=== PATIENT | female | born 1950 | race Caucasian/White ===

== ENCOUNTER 2017-08-23 12:32 | Outpatient (RCR) | payer MEDICARE, SELFPAY ==
[2017-07-26 11:05] LABS: Prothrombin Time Fingerstick 25.3 SEC (11.9-14.4)
[2017-08-23 12:51] LABS: Prothrombin Time Fingerstick 21.8 SEC (11.9-14.4)
== END 2017-08-23 12:45 | disposition home or self-care (01) ==
LOC: LAB 12:32
PROVIDERS: Family Provider Family Medicine; PCP Family Medicine; Visit Provider Internal Medicine Cardiovascular Disease
DX: I48.91 Unspecified atrial fibrillation (principal)
CPT/HCPCS: 36416; 85610

== ENCOUNTER → 2017-09-12 10:23 | Outpatient (CLI) | payer MEDICARE, SELFPAY ==
--- NOTE | 2017-09-12 10:42 | CR.HP_ITS ---
CR - History & Physical - General Arrival date:: 09/12/17 Arrival time:: 10:33 Date of Admission: 09/12/17 Referring Physician: Dr. Omar Sanchez Primary Diagnosis: CABG w/ mitral valve repair 04/2017 - History of Present Cardiac Event Onset Date: Enter Onset Date of cardiac illnesses in Comment field below CABG:: Yes - single vessel bypass 05/22/2017 Valve Replacement/Repair:: Yes - Mitral valve repaired 05/22/2017 Type of Symptoms:: Severe mitral valve regurgitation and heart failure Interventions with present event:: Single vessel bypass and mitral valve repair at [facility] Were there any complications?: Spontaneous atrial fibrillation and subsequent cardioversion - Medications Home Medications: Ambulatory Orders Medication Instructions Recorded Furosemide [Lasix] 40 mg PO DAILY 02/03/17 Multivitamin [Daily Multiple 1 ea PO DAILY 06/19/17 Vitamin] Aspirin E.C. [Ecotrin] 81 mg PO DAILY@0800 tab 06/22/17 Carvedilol [Coreg (Beta Delilah)] 3.125 mg PO BID #60 tab 06/22/17 Levothyroxine [Synthroid] 50 mcg PO DAILY@0600 tab 06/22/17 Nitroglycerin [Nitrostat] 0.4 mg SUBLINGUAL Q5M PRN #1 bottle 06/22/17 Potassium Chloride [K-Dur] 10 meq PO DAILYCM tab 06/22/17 warfarin 1 mg tablet 1 mg PO QDAY 07/14/17 warfarin 4 mg tablet 4 mg PO DAILY #180 tab 07/19/17 atorvastatin 40 mg tablet 40 mg PO QHS #90 tab 08/03/17 lisinopril 2.5 mg tablet 2.5 mg PO BID #180 tab 08/03/17 spironolactone 25 mg tablet 25 mg PO DAILY #90 tab 08/03/17 acetaminophen 325 mg tablet See Label Instructions PO Q6H PRN 08/11/17 tab amoxicillin 500 mg tablet 500 mg PO .COMPLEX tab 08/11/17 - Allergies Allergies/Adverse Reactions: Allergies No Known Allergies Allergy (Verified 08/23/17 10:17) - Sleep Disorder Evaluation Hx of Sleep Apnea: No Do you snore loudly (louder than talking or can be heard through closed doors)? : No Do you often feel tired/ fatigued/ sleepy during daytime?: No Has anyone observed you stop breathing during sleep?: No History of Hypertension (for STOP score): Yes STOP Results: Negative Advanced Directives - Advanced Directives Power of Dining Services Director: Yes Living Will: Yes Advance Directives Information Provided: No Advance Directives on File: No - on file with [facility] DNR Order?:: No Past Medical History - Problems and Co-Morbidities Problems & Co-Morbidities: - - bilateral pleural effusions, - Past Medical Illness Other Medical Illnesses:: edema (chronic),pericardial effusion, systolic dysfunction, acute on chronic systolic congestive heart failure. - Past Cardiac Illness Past Cardiac Illness: Valve Disorders - nonrheumatic mitral valve prolapse and regurgitation., Arrhythmias - atrial fibrillation, atrial flutter (resolved cardioversion 06/20/2017), CHF - Acute systolic heart failure (chronic), Ejection Fraction - 30-34%, Other - Chronic cardiomyopathy, - Other Other: Vision/Eye Problems - reading glasses. - Cardiology Procedures/Interventions Cardiology Procedures/Interventions: Heart Catheterization, Echocardiogram - Past Surgical History Surgical History: coronary bypass surgery, tonsillectomy, - - MV repair, tubal ligation, - Family History Summary Additional Family History: mother CVA, father heart disease bad valve. Review of Systems - Review of Systems Hints: Right click = Denies ([place]). Left click = Reports ([place]) Review of Present Symptoms: Reports: Heart Arrhythmia/Irregularities - atrial fibrillation and atrial flutter resolved with cardioversion operative procedure in May 2017., Appetite - Normal, Appetite - Special Diet - Low sodium diet. Less than 2000., Sleep - Normal. Denies: Shortness of Breath at Rest, Shortness of Breath with Exertion, Dizziness/Lightheadedness, Fatigue, Sexual Changes Risk Factor Assessment - Chief Complaint Chief Complaint: Very pleasant femlae age 66 presentst o cardiac rehab today under the care of Dr. Omar Sanchez following recent mitral valve repair and single vessel bypass in fall. - Pulse Pulse Rate: 64 - SpO2 95% Pulse Rhythm: Regular - Hypertension Blood Pressure Sitting - Left Arm: 124/72 - Diabetes Nutrition Referral for Diabetes: No - Obesity Height: 5 ft 6 in Weight:: 65.771 kg Weight in Pounds: 145.0 lbs Body Mass Index (BMI): 23.3 Nutritional Referral for Obesity: No - Physical Inactivity Physical Inactivity: Reg Exercise 30 min/day - 5, 000 or more steps per day. Active lifestyle - Risk Stratification Risk Guidelines: Lowest Risk: Risk Factor for Smoking, Risk Factor for Dyslipidemia, Risk Factor for Diabetes, Risk Factor for Obesity, Risk Factor for Hypertension, Risk Factor for Sedentary Lifestyle, Risk Factor for Depression - For Smoking Smoking Risk Guidelines: Smoking Low Risk: None or quit greater than 6 months ago. Smoking Moderate Risk: Smoker or quit 6 months or less ago. Smoking High Risk: Smoker - For Dyslipidemia Dyslipidemia Risk Guidelines: Low Risk: Moderate Risk: High Risk: 15-25% fat 25.1-29% fat >/= 30% fat. <7% sat fat 7-9% sat fat >9% sat fat. <150 mg chol 150-299 mg chol >/= 300 mg chol. LDL <100 LDL 100-129 LDL >/= 130. Chol/HDL ratio <5.0 Chol/HDL ratio 5.0-6.0 Chol/HDL ratio >6.0. Triglycerides <100 Triglycerides 100-149 Triglycerides >/= 150 - For Diabetes Mellitus Diabetes Risk Guidelines: Diabetes Low Risk: HgA1c <6.5% and/or FBG <120. Diabetes Moderate Risk: HgA1c 6.6-7.9% and/or FBG 120-180. Diabetes High Risk: HgA1c >/= 8% and/or FBG >180 - For Obesity/Overweight Obesity/Overweight Risk Guidelines: Obesity Low Risk: BMI <25.0. Obesity Moderate Risk: BMI 25-29.9. Obesity High Risk: BMI >/= 30.0 - For Hypertension Hypertension Risk Guidelines: Hypertension Low Risk: Systolic <120 and Diastolic <80. Hypertension Moderate Risk: Systolic 120-139 and Diastolic 80-89. Hypertension High Risk: Systolic >/= 140 and Diastolic >/= 90 - For Sedentary Lifestyle Sedentary Lifestyle Risk Guidelines: Sedentary Lifestyle Low Risk: >/= 1 ,500 kcal/week. Sedentary Lifestyle Moderate Risk: 700-1,499 kcal/week. Sedentary Lifestyle High Risk: < 700 kcal/week - For Depression Depression Risk Guidelines: Depression Low Risk: Not clinically depressed. Depression Moderate Risk: Mildly depressed. Depression High Risk: Clinically depressed - Family History Family History: Family History (Last Updated 08/23/17 @ 10:20 by Jerson Berger) Mother CVA (cerebral vascular accident) Father Heart disease Social History - Smoking History Smoking Status: Never smoker Hx Tobacco Use: No Hx Smoking Exposure: No - Alcohol Use Alcohol Usage: Yes - Wine; a couple of glasses per week. - Substance Abuse Hx Substance Use: No - Occupation Hours worked per day:: 6 Returned to work on:: 06/26/17 - Hobbies, Recreation, Social Activities Hobbies: Farm, Sewing, Reading, Walking, Exercise, Other - gardening, chicken raising, puzzles, reading, knitting, grandchildren. Recreational Activities: I am able to engage in all my recreational activities Marital Status - Status Marital Status: - Current Living Arrangements Living Environment:: Family - Children How many children do you have?: 3 - 3-daughters, 5 grandchildren Do any of your children live nearby?: Yes - Safety Do you feel safe in your surroundings?: Yes - Assistance Do you need any assistance at home?: none
--- NOTE | 2017-09-12 10:51 | CR.ITP_ITS ---
Exercise - Initial Assessment - Visit Date of Eval: 09/12/17 - initial evaluation pre- CR Session #:: 0 - - Stages of Change Stages of Change:: Action - Exercise Prescription Mode:: Treadmill, Rower, Airdyne, NuStep Angina with exercise?: No Target Heart Rate:: 115-123 - Hypertension Do any of the following apply?: No Resting Blood Pressure:: 120/72 - Intervention Home Exercise/Activity Goal:: Moderate Exercise 30 min/day x 5 days/wk - Education Goals:: Warm-up, RPE NEO Scale, S/S, Safe Exercise, Self-Monitoring - Exercise Program Goals Exercise Program Goals: Aerobic Activity >30 min Nutrition - Initial Assessment - Program Goals Nutrition Program Goals: LDL <70. Total Cholesterol <200. HDL >45. Triglycerides <150. HgbA1C <7%. BMI <25 - Visit Date of Assessment:: 09/12/17 - Initial evaluation-pre CR - Stages of Change Stages of Change:: Action - Diabetes Diabetes:: No Insulin: No Non-Insulin Dependent?: No Do you monitor your blood sugar at home?: No - Weight Management Height: 5 ft 6 in Weight:: 145 kg Body Fat %:: 24 - Intervention Referral to dietitian:: No Referral to Diabetic Clinic:: No Will attend diet classes:: No - Education Gave educational materials for:: Healthy eating Tobacco - Initial Assessment - Program Goals Tobacco Program Goals: Complete smoking cessation. Attend education classes. Improve Knowledge Test score - Stage of Change Stages of Change:: Action - Learning Barriers Learning Barriers: Vision - readers only., Ready to Learn - Family Support Do you have family support?: Yes - Tobacco Use Tobacco Use: Non-smoker Do you use smokeless tobacco?: No - Intervention Smoking Cessation Referral:: No Individual Education/Counseling:: No Education Schedule Given:: Yes - Education Gave educational material for:: Coronary artery disease, Risk factors, Sexuality , Medical compliance, Cardiac A&P, Angina signs & symptoms Psychosocial - Initial Assess - Target Goals Target Goals: Assess presence or absence of depression. Using a valid screening tool, maximizes coping skills. Positive support system - Stages of Change Stages of Change:: Action - Psychosocial Test Tool Used:: HANDS Depression Questionnaire Total Mood Screening Score:: 0 - Intervention PS - Interventions: Yes Attend Stress Management Classes, Yes Uses Stress Management Skills, No Referral to Mental Health, No Referral to [facility] Case Management, No Referral to Physician - Education Gave educational materials for:: Coping techniques, Signs & symptoms of depression, Stress management, Relaxation techniques - Patient/Program Goal Preventative Medication(s):: Aspirin, Clopidogrel, Statin/lipid - Assistive Devices Assistive Devices:: None Fall Risk Assessed:: Yes Patient Health Questionnaire Initial Assessment 1. Little interest or pleasure in doing things: Not at all 2. Feeling down, depressed, or hopeless: Not at all 3. Trouble falling or staying asleep, or sleeping too much: Not at all 4. Feeling tired or having little energy: Not at all 5. Poor appetite or overeating: Not at all 6. Feeling bad about yourself -- or that you are a failure or have let yourself or your family down: Not at all 7. Trouble concentrating on things, such as reading the newspaper or watching television: Not at all 8. Moving or speaking so slowly that other people could have noticed. Or the opposite - being so fidgety or restless that you have been moving around a lot more than usual: Not at all 9. Thoughts that you would be better off , or of hurting yourself in some way: Not at all Total Score: 0 Knowledge Test - Check your knowledge Initial The #1 cause of in the [place] each year is:: Heart disease Which of the following is a common treatment for heart disease?: All of the above The arteries that feed the heart are called:: Coronary arteries HDL cholesterol is known as the good cholesterol.: True What disease increases your risk for heart disease?: Diabetes What food product raises blood cholesterol level the most?: Saturated fat The bad cholesterol in the blood is called:: LDL Hypertension is another word for:: High blood pressure A blood pressure reading of 148/88 is considered normal.: False Exercise will only benefit your health when your heart rate reaches a target level.: True Total Score:: 9 Self-Efficacy Initial Assessment We would like to know how confident you are in doing certain activities. Please select your confidence level for:: Select your confidence level for the following using the scale 1-10 where 1 is not at all confident and 10 is totally confident. Your score is the average of all 6 responses. Fatigue: How confident are you that you can keep the fatigue caused by your disease from interfering with the things you want to do? Select Number: 8 Physical Discomfort or Pain: How confident are you that you can keep the physical discomfort or pain of your disease from interfering with the things you want to do? Select Number: 8 Emotional Distress: How confident are you that you can keep the emotional distress caused by your disease from interfering with the things you want to do? Select Number: 9 Other Symptoms or Health Problems: How confident are you that you can keep other symptoms or health problems from interfering with the things you want to do? Select Number: 8 Different Tasks and Activities: How confident are you that you can do the different tasks and activities needed to manage your health condition so as to reduce your need to see a doctor? Select Number: 8 Medication: How confident are you that you can do things other than just taking medication to reduce how much your illness affects your everyday life? Select Number: 6 Total Score:: 7 Nutrition Survey - Nutrition Survey Instructions Scoring Instructions: Scoring is as follows: Yes = 1 points. No = 0 point. Patient score that is >/=12 is considered to be at potential nutritional risk and could benefit from a referral to a registered dietitian. - Nutrition Survey Initial Have you lost >10 lbs over the past 2 months without trying?: No Are you following a special diet at home for diabetes, low fat, or low salt?: Yes Are you interested in meeting with a dietitian for help understanding your diet? : Yes Do you eat less than 3 meals a day?: No Do you eat fatty meats (tovar, sausage, ribs, etc), fried foods, desserts, large amounts of salad dressings, margarine, butter, or cheese most days?: No Do you have food allergies? [Enter types in comment field]: No Do you eat in restaurants more than 3 times a week?: No Do you season food with salt, seasoning salt, or garlic salt?: No Do you used canned, boxed, frozen meals, or soups, seasoning packets?: No Total Score:: 2 Cardiac Rehabilitation Goals - Cardiac Rehab Goals Cardiac Rehabilitation Goals: 1. Maintain the individual as the primary focus of care. 2. To improve the patient's quality of life. 3. Identification of cardiac risk factors and provide cardiac risk factor management. 4. Enhance the psychosocial status of the patient. 5. Reconditioning enough to allow the patient to resume customary activities. 6. Control symptoms of cardiac disease - Scale Scale for measuring improvement of personal goals: Enter appropriate number in Comments. 2 = Unchanged. 3 = Slightly Better. 4 = Moderate Improvement. 5 = Met my Goal Initial Assessment Personal Goals: 30-day Re-assessment: Improve management of stress and emotions , Improve energy level, Participate in home exercise program, Get back to work, or to resume activities faster, Improve knowledge of cardiac disease, Improve muscle strength and endurance, Improve diet and eating habits (eat healthier), Control risk factors (learn risk factor modification)
[2017-09-12 10:58] VITALS: BP 124/72; PULSE 64; BMI 23.3
[2017-09-12 11:37] VITALS: BP 120/72
== END ==
PROVIDERS: Family Provider Family Medicine; PCP Family Medicine; Visit Provider Internal Medicine Cardiovascular Disease
DX: Z95.1 Presence of aortocoronary bypass graft (principal)

== ENCOUNTER 2017-09-12 10:26 | Outpatient (RCR) | payer MEDICARE, SELFPAY ==
[2017-08-23 13:03] VITALS: BP 140/80; BMI 23.3
[2017-09-12 11:46] LABS: Prothrombin Time Fingerstick 21.2 SEC (11.9-14.4)
== END 2017-09-12 11:00 | disposition home or self-care (01) ==
LOC: LAB 10:26
PROVIDERS: Family Provider Family Medicine; PCP Family Medicine; Visit Provider Internal Medicine Cardiovascular Disease
DX: I48.91 Unspecified atrial fibrillation (principal)
CPT/HCPCS: 36416; 85610

== ENCOUNTER 2017-09-20 15:15 | Outpatient (RCR) | payer MEDICARE, SELFPAY ==
[2017-09-20 13:42] VITALS: BP 128/80; BP 144/82
--- NOTE | 2017-09-20 13:42 | CR.ITP_ITS ---
Exercise - 30-day Assessment - Visit Date of Eval: 09/20/17 Session #:: 3 - Stages of Change Stages of Change:: Action - Exercise Prescription Mode:: Treadmill, Rower, Airdyne, NuStep Frequency (x/week): 3 Duration:: 30 METs - Progression: 0.5-1 MET as tolerated: 2.5 Target Heart Rate:: 115-123 max HR 106 - Hypertension Resting Blood Pressure:: 128/80 Peak Exercise Blood Pressure:: 144/82 Medication Changes:: No - Intervention Home Exercise/Activity Goal:: Moderate Exercise 30 min/day x 5 days/wk - Education Goals:: Warm-up, RPE NEO Scale, S/S, Safe Exercise, Self-Monitoring - Exercise Program Goals Exercise Program Goals: Aerobic Activity >30 min Nutrition - 30-Day Assessment - Program Goals Nutrition Program Goals: LDL <70. Total Cholesterol <200. HDL >45. Triglycerides <150. HgbA1C <7%. BMI <25 - Visit Date of Eval: 09/20/17 - Stages of Change Stages of Change:: Action - Lipids Has the patient seen the dietitian?: No - Diabetes Diabetes:: No Insulin: No Non-Insulin Dependent?: No - Intervention Referral to dietitian:: No Referral to Diabetic Clinic:: No Will attend diet classes:: Yes - Education Attended class for:: Healthy eating Tobacco - 30-Day Assessment - Program Goals Tobacco Program Goals: Complete smoking cessation. Attend education classes. Improve Knowledge Test score - Stage of Change Stages of Change:: Action - Learning Barriers Learning Barriers: Participates in education - Family Support Do you have family support?: Yes - Tobacco Use Tobacco Use: Non-smoker Do you use smokeless tobacco?: No - Intervention Smoking Cessation Referral:: No Individual Education/Counseling:: No Education Schedule Given:: Yes - Education Attended class for:: Coronary artery disease, Risk factors, Sexuality, Medical compliance, Cardiac A&P, Angina signs & symptoms Psychosocial - 30-Day Assess - Target Goals Target Goals: Assess presence or absence of depression. Using a valid screening tool, maximizes coping skills. Positive support system - Stages of Change Stages of Change:: Action - Psychosocial Test Tool Used:: HANDS Depression Questionnaire - Intervention PS - Interventions: Yes Attend Stress Management Classes, Yes Uses Stress Management Skills, No Referral to Mental Health, No Referral to [facility] Case Management, No Referral to Physician - Education Attended classes for:: Coping techniques, Signs & symptoms of depression, Stress management, Relaxation techniques - Patient/Program Goal Preventative Medication(s):: Aspirin, Clopidogrel, Statin/lipid - Assistive Devices Assistive Devices:: None Fall Risk Assessed:: Yes Patient Health Questionnaire 30-Day Re-eval Assessment 1. Little interest or pleasure in doing things: Not at all 2. Feeling down, depressed, or hopeless: Not at all 3. Trouble falling or staying asleep, or sleeping too much: Not at all 4. Feeling tired or having little energy: Not at all 5. Poor appetite or overeating: Not at all 6. Feeling bad about yourself -- or that you are a failure or have let yourself or your family down: Not at all 7. Trouble concentrating on things, such as reading the newspaper or watching television: Not at all 8. Moving or speaking so slowly that other people could have noticed. Or the opposite - being so fidgety or restless that you have been moving around a lot more than usual: Not at all 9. Thoughts that you would be better off , or of hurting yourself in some way: Not at all Total Score: 0 Self-Efficacy 30-Day Re-eval Assessment We would like to know how confident you are in doing certain activities. Please select your confidence level for:: Select your confidence level for the following using the scale 1-10 where 1 is not at all confident and 10 is totally confident. Your score is the average of all 6 responses. Fatigue: How confident are you that you can keep the fatigue caused by your disease from interfering with the things you want to do? Select Number: 10 Physical Discomfort or Pain: How confident are you that you can keep the physical discomfort or pain of your disease from interfering with the things you want to do? Select Number: 10 Emotional Distress: How confident are you that you can keep the emotional distress caused by your disease from interfering with the things you want to do? Select Number: 10 Other Symptoms or Health Problems: How confident are you that you can keep other symptoms or health problems from interfering with the things you want to do? Select Number: 10 Different Tasks and Activities: How confident are you that you can do the different tasks and activities needed to manage your health condition so as to reduce your need to see a doctor? Select Number: 10 Medication: How confident are you that you can do things other than just taking medication to reduce how much your illness affects your everyday life? Select Number: 10 Total Score:: 10
== END 2017-09-20 23:59 ==
LOC: CR 15:15
PROVIDERS: Family Provider Family Medicine; PCP Family Medicine; Visit Provider Internal Medicine Cardiovascular Disease
DX: I25.10 Atherosclerotic heart disease of native coronary artery without angina pectoris (principal); Z95.1 Presence of aortocoronary bypass graft; Z95.2 Presence of prosthetic heart valve; Z98.890 Other specified postprocedural states
CPT/HCPCS: 93798

== ENCOUNTER 2017-09-22 15:39 | Emergency (ER) | payer MEDICARE, SELFPAY ==
[2017-09-22 15:40] VITALS: BP 160/100; PULSE 89; RESP 26; TEMP 37.2; O2SAT 99; BMI 23.2
--- NOTE | 2017-09-22 15:49 | EKG12_ITS ---
Test Reason : CP Blood Pressure : / mmHG Vent. Rate : 089 BPM Atrial Rate : 089 BPM P-R Int : 172 ms QRS Dur : 098 ms QT Int : 376 ms P-R-T Axes : 084 057 105 degrees QTc Int : 457 ms Normal sinus rhythm Septal infarct , age undetermined Abnormal ECG Confirmed by TRACI FRANKEL, ARTIE ([id number]), editor newspaper TRUPTI TOMAS ([id number]) on 09/26/2017 4:19:34 PM Referred By: REGINE Confirmed By:ARTIE AVILES MD
--- NOTE | 2017-09-22 15:50 | RAD_ITS ---
STUDY: X-RAY CHEST REASON FOR EXAM: Female, 66 years old. Abnormal EKG TECHNIQUE: AP portable COMPARISON: June 19, 2017 FINDINGS: Lungs are hyperinflated but clear. There is no demonstrated pleural abnormality. Postop changes status post median sternotomy and CABG as well as aortic valve prosthesis placement Heart is enlarged. Normal mediastinum and ruby. Normal visualized pulmonary arteries. Normal visualized aortic arch and descending thoracic aorta. Dorsal spine demonstrates mild scoliosis and degenerative changes. Normal visualized ribs, clavicles, and shoulders. There is no demonstrated abnormality of the visualized soft tissue structures of the upper abdomen. RAD/Chest 1 View (Portable) IMPRESSION: COPD and superimposed ASHD. No acute disease. Electronically Signed: Franco Krishnamurthy MD at 17:05 EST , Service support ,
--- NOTE | 2017-09-22 15:54 | ED.VISSUMM ---
- ER Visit Summary Date of Service: 09/22/17 Chief Complaint: Change in heart rhythm History of Present Illness: The patient is a 66 F with medical history significant for recent coronary artery bypass with mitral valve repair done at [facility] in May presents to the emergency department from cardiac rehab. Patient was at cardiac rehab. She had not even started her exercises. She was found to be having significant sinus pauses with heart rates down into the 30s and 40s. She was totally asymptomatic. The patient was admitted about 2 months ago when she was found to be in atrial flutter with rapid ventricular response. She was also having bradycardic events. He was thought she may have had sick sinus syndrome, but as she was so close to her surgery, it was thought that she did not need electrophysiology workup at that time. The patient has been doing well with her rehab. She denies any chest pain, dyspnea, or other systemic symptoms. She states that today, she cannot even tell that her heart rate was low. Physical Examination: Vital signs reviewed General: Well-nourished, well-developed Head: Normocephalic, atraumatic Eyes: Pupils equal and reactive, extraocular muscles intact Neck, supple, no lymphadenopathy Heart: Regular rate and rhythm Respiratory: No distress, clear bilaterally Abdomen: Soft, nontender, nondistended, no peritoneal signs Back: Nontender Extremities: Nontender, no edema, no cords Skin: Normal color no rash Neuro: Alert and oriented, no focal or lateralizing deficits Test Results: EKG demonstrates sinus rhythm with no acute ischemia. Screening labs relatively unremarkable. Troponin was indeterminate at 0.24. Emergency Department Course and Treatment: The patient presents with asymptomatic bradycardia. I did review her monitor strip. It does not appear as if she may have underlying sick sinus syndrome as there was no heart block or transmitted P waves. She does have retrograde P waves when she has a narrow complex rhythm when her heart rate is in the 30s and 40s. Her labs are unremarkable. Again, this patient was entirely asymptomatic, but given her history and suspicion for prior sick sinus syndrome, this was concerning. I did discuss the patient with Dr. Mariee. At this time, he is recommending admission as the patient is likely going to need pacemaker placement. Patient was discussed with the hospitalist and will be admitted. Abdomen: The patient was to be admitted, but she had discussed with the hospitalist this is been going on for months. She did not want to stay. The hospitalist had discussed patient's care with Dr. Woo, registration specialist provider relations manager. He was agreeable with placement of a 48 hour Holter monitor and follow up in the office. At the discretion of cardiology and the hospitalist, the patient will be discharged. Treatment Plan: [] Disposition: Admission Impression: 1. Sick sinus syndrome This note was generated with [employer] dictation software. It may contain incorrect words, spelling, and punctuation that were not noted in review of the chart prior to signing ED Disposition - Plan for ED Patient: Chief Complaint: Palpitations Instructions: ED Palpitations Referrals: Feliciano Carter MD [STAFF PHYSICIAN] - (Call Monday)
[2017-09-22 16:14] LABS: Absolute Lymphocyte Count 2.84 X10^3/ul (0.83-4.51); Absolute Neutrophil Count 6.1 X10^3/uL (2.0-7.7); Basophil# 0.03 X10^3/uL; Basophil% 0.3 % (0-1); Eosinophil# 0.19 X10^3/uL; Eosinophils% 1.9 % (0-5); Hematocrit 42.9 % (37-47); Hemoglobin 14.6 g/dl (12.0-15.0); Lymphocyte # 2.84 X10^3/ul (4.0); Lymphocyte % 28.9 % (19-41); Mean Corpuscular Hgb 31.3 pg (27.0-32.0); Mean Corpuscular Volume 91.9 fL (81-99); Mean Platelet Vol. 9.5 fl (6.2-12.0); Monocyte# 0.63 X10^3/uL; Monocyte% 6.4 % (0-10); Neutrophil # 6.11 X10^3/uL (2.7-7.7); Neutrophil % 62.3 % (47-70); Platelet Count 252 K/mm3 (150-450); RBC Distribution Width CV 12.3 % (11.6-14.6); RBC Distribution Width SD 40.9 fl (35.1-43.9); Red Blood Count 4.67 M/mm3 (4.2-5.4); White Blood Count 9.8 K/mm3 (4.4-11.0)
[2017-09-22] MEDS: 0.9% Normal Saline 1,000 ML 150 ML IV (16:14)
[2017-09-22 16:21] LABS: International Normalized Ratio 1.9; Prothrombin Time (Protime)PT. 21.9 SECONDS (11.7-14.9)
[2017-09-22 16:24] LABS: POSITIVE COUNT NO; POSITIVE DIFFERENTIAL NO; POSITIVE MORPHOLOGY NO
[2017-09-22 16:26] LABS: ALB/GLOB Ratio 1.2 RATIO (0.9-2.4); AST(SGOT) 31 U/L (15-37); Alanine Aminotransfer ALT/SGPT 42 U/L (13-56); Albumin, Serum 4.3 g/dL (3.2-5.0); Alkaline Phosphatase 94 U/L (45-117); Anion Gap 7 (5-15); BUN 33 mg/dL (7-18); BUN/Creat Ratio 31.7 RATIO (10-20); Calcium,Total 8.7 mg/dL (8.5-10.1); Chloride 99 mmol/L (98-107); Creatinine, Serum 1.04 mg/dL (0.55-1.02); EST Glomerular Filtration Rate 56 mL/min (>60); Est Glom Filt Rate - Afr Amer 68 mL/min (>60); Estimated Creatinine Clearance 49.81 ml/min; Globulin 3.7 g/dL (2.2-4.2); Glucose 81 mg/dL (74-106); Potassium 4.6 mmol/L (3.5-5.1); Sodium Level 136 mmol/L (136-145)
[2017-09-22 16:49] VITALS: BMI 23.3
[2017-09-22 16:53] VITALS: BP 152/100; PULSE 89; RESP 16; O2SAT 98
--- NOTE | 2017-09-22 16:55 | HP.PCM_ITS ---
<Amanda Perales - Last Filed: 09/22/17 17:30> Problem List (1) Acute on chronic systolic congestive heart failure Status: Chronic (2) Atrial fibrillation Status: Chronic (3) Atrial flutter Status: Resolved (4) CAD (coronary artery disease) Status: Chronic (5) Cardiomyopathy Status: Chronic (6) H/O coronary artery bypass surgery Status: Chronic Comment: CABG x1 Lt internal thoracic artery to the LAD at [facility] 04/2017 (7) HLD (hyperlipidemia) Status: Chronic (8) Long-term (current) use of anticoagulants, INR goal 2.0-3.0 Status: Chronic (9) Nonrheumatic mitral (valve) prolapse Status: Chronic (10) Nonrheumatic mitral valve regurgitation Status: Chronic (11) Pericardial effusion Status: Chronic (12) S/P CABG x 1 Status: Chronic Comment: KERN to the LAD (13) S/P MVR (mitral valve repair) Status: Chronic Comment: MV A3/P3 commissuroplasty with a #34 [facility] Saddle complete rigid annuloplasty ring History of Present Illness Date of Admission: 09/22/17 Chief Complaint: Dropped beats The patient is a 66 year old F who presents to the ER after noted dropped beats during Cardiac Rehab today. She states this is not a new finding but was concerning to staff who referred her to ER. Patient states she was asymptomatic at during episode. Patient states dropped beats have been noted during office visits with Dr. Sanchez were not noted to be concerning. Patient denies chest pain, shortness of breath, syncope. She states she has been doing well since her bypass surgery and mitral valve repair in April 2017. Has been at bedside during assessment. and patient states they would like to continue outpatient follow-up/treatment versus being admitted since this is not a new finding. Discussed with cardiology who recommended patient be discharged with 48 hour Holter monitor and referral for AICD. Past Medical History Past Medical History (Chronic Problems): Chronic Problems (Last Reviewed 08/23/17 @ 10:29 by Jerson Berger) Atrial fibrillation (Chronic) Cardiomyopathy (Chronic) Nonrheumatic mitral (valve) prolapse (Chronic) Nonrheumatic mitral valve regurgitation (Chronic) Pericardial effusion (Chronic) H/O coronary artery bypass surgery (Chronic) CABG x1 Lt internal thoracic artery to the LAD at [facility] 04/2017 Acute on chronic systolic congestive heart failure (Chronic) Long-term (current) use of anticoagulants, INR goal 2.0-3.0 (Chronic) CAD (coronary artery disease) (Chronic) S/P CABG x 1 (Chronic) KERN to the LAD S/P MVR (mitral valve repair) (Chronic) MV A3/P3 commissuroplasty with a #34 [facility] Saddle complete rigid annuloplasty ring HLD (hyperlipidemia) (Chronic) Allergies No Known Allergies Allergy (Verified 09/22/17 15:44) Home Medications: Ambulatory Orders Medication Instructions Recorded Furosemide [Lasix] 40 mg PO DAILY 02/03/17 Multivitamin [Daily Multiple 1 ea PO DAILY 06/19/17 Vitamin] Aspirin E.C. [Ecotrin] 81 mg PO DAILY@0800 tab 06/22/17 Carvedilol [Coreg (Beta Delilah)] 3.125 mg PO BID #60 tab 06/22/17 Levothyroxine [Synthroid] 50 mcg PO DAILY@0600 tab 06/22/17 Nitroglycerin [Nitrostat] 0.4 mg SUBLINGUAL Q5M PRN #1 bottle 06/22/17 Potassium Chloride [K-Dur] 10 meq PO DAILYCM tab 06/22/17 warfarin 1 mg tablet 2 mg PO ARRIAGA 07/14/17 atorvastatin 40 mg tablet 40 mg PO QHS #90 tab 08/03/17 lisinopril 2.5 mg tablet 2.5 mg PO BID #180 tab 08/03/17 spironolactone 25 mg tablet 25 mg PO DAILY #90 tab 08/03/17 amoxicillin 500 mg tablet 500 mg PO .COMPLEX tab 08/11/17 Warfarin [Coumadin] 4 mg PO MOTUWETHFRSA 09/22/17 Surgical History: coronary bypass surgery, tonsillectomy, - - Tubal ligation, plastic surgery ?3 to right hand. 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 Smoking Status: Never smoker Alcohol: Rare Drugs: None - *Family History Paternal History Items: Heart Disease Maternal History Items: Stroke Review of Systems Constitutional: Denies: Chills, Fever, Weight Change HEENT: Denies: Head Aches, Sinus Congestion, Sinus Drainage Cardiovascular: Denies: Chest Pain, Palpitations Respiratory: Denies: Cough, Shortness of breath at rest, Sputum production Gastrointestinal: Denies: Abdominal Pain, Nausea, Vomiting Genitourinary: Denies: Dysuria Musculoskeletal: Denies: Joint Pain, Joint Tenderness Skin: Denies: Rash, Wounds Neurological: Denies: Numbness, Tingling, Focal weakness Psychiatric: Denies: Anxiety, Depression, Homicidal Ideations, Suicidal Ideations Hematologic/ Lymphatic: Denies: Easy Bruising, Easy Bleeding VTE Information - Inpt Only VTE Present on Admission: No VTE Mechan Device Prophylaxis: None VTE Pharm Prophylaxis ordered?: Yes - Physical Exam General: Alert, Oriented x3, Cooperative, No apparent distress HEENT: Atraumatic, PERRLA, EOMI, Normocephalic Neck: Supple, No JVD, Negative Carotid Bruits Lungs: Clear to auscultation, Normal air movement Cardiovascular: Regular rate, Regular Rhythm, Normal S1, Normal S2, Murmur Abdomen: Bowel Sounds Present, Soft, Non Tender, Non-Distended Extremities: No clubbing, No cyanosis, No edema, Capillary Refill Less than 3 Seconds Skin: No rashes, No breakdown Musculoskeletal: No Tenderness to Palpation of Joints or Extremities Neurological: Cranial nerves II-XII grossly intact, Neuro grossly intact Psych/Mental Status: Normal Affect, Appropriate Vital Signs Temp Pulse Resp BP Pulse Ox 98.9 F 89 26 H 160/100 H 99 09/22/17 15:40 09/22/17 15:40 09/22/17 15:40 09/22/17 15:40 09/22/17 15:40 Weight: 65.317 kg Body Mass Index (BMI) 23.2 Laboratory Tests Past 24 Hrs 09/22/17 09/22/17 09/22/17 15:55 15:55 15:55 WBC 9.8 RBC 4.67 Hgb 14.6 Hct 42.9 MCV 91.9 MCH 31.3 MCHC 34.0 RDW 12.3 RDW Differential 40.9 Plt Count 252 MPV 9.5 Immature Gran % (Auto) 0.200 Neut % (Auto) 62.3 Lymph % (Auto) 28.9 [place] % (Auto) 6.4 Eos % (Auto) 1.9 Baso % (Auto) 0.3 Absolute Neuts (auto) 6.1 Absolute Lymphs (auto) 2.84 Total Counted Not Reportable PT 21.9 H INR 1.9 Sodium 136 Potassium 4.6 Chloride 99 Carbon Dioxide 30.0 Anion Gap 7 BUN 33 H Creatinine 1.04 H Estim Creat Clear Calc 49.81 Est GFR (MDRD) Af Amer 68 Est GFR (MDRD) Non-Af 56 L BUN/Creatinine Ratio 31.7 H Glucose 81 Calcium 8.7 Total Bilirubin 0.70 AST 31 ALT 42 Alkaline Phosphatase 94 Troponin I 0.24 H Total Protein 8.0 Albumin 4.3 Globulin 3.7 Albumin/Globulin Ratio 1.2 Assessment/Plan 1. Bradycardia/SSS-no noted block on EKG. Intermittent dropped beats. Patient asymptomatic. Patient will be discharged from ER with 48 hour Holter monitor and further follow-up as outpatient with cardiology with recommended referral for AICD. Patient follows with Dr. Sanchez. 2. CAD status post bypass with alignment to the LAD and mitral valve repair in April 2017. Continue aspirin, statin, BB, warfarin. 3. Chronic systolic CHF-echocardiogram June 2017 showed an EF of 25-30%, mild mitral valve regurgitation. Recommend repeat echo as outpatient. No signs of acute exacerbation. 4. Nonrheumatic mitral valve regurgitation-status post mitral valve repair. 5. Paroxysmal atrial fibrillation-diagnosed postoperatively after her surgery April 2017. Status post cardioversion May 2017. Has not had any known recurrence since that time. Remains on anticoagulation with Coumadin. 6. Hyperlipidemia- continue statin. DVT prophylaxis- Coumadin This patient was seen by TRACIE Argueta under the supervision of Dr. Naik. <Selena Naik - Last Filed: 09/22/17 17:55> History of Present Illness The patient is a 66 year old F [] Past Medical History Allergies No Known Allergies Allergy (Verified 09/22/17 15:44) - Physical Exam Vital Signs Temp Pulse Resp BP Pulse Ox 98.9 F 89 16 152/100 H 98 09/22/17 15:40 09/22/17 16:53 09/22/17 16:53 09/22/17 16:53 09/22/17 16:53 Weight: 65.317 kg Body Mass Index (BMI) 23.2 Laboratory Tests Past 24 Hrs 09/22/17 09/22/17 09/22/17 15:55 15:55 15:55 WBC 9.8 RBC 4.67 Hgb 14.6 Hct 42.9 MCV 91.9 MCH 31.3 MCHC 34.0 RDW 12.3 RDW Differential 40.9 Plt Count 252 MPV 9.5 Immature Gran % (Auto) 0.200 Neut % (Auto) 62.3 Lymph % (Auto) 28.9 [place] % (Auto) 6.4 Eos % (Auto) 1.9 Baso % (Auto) 0.3 Absolute Neuts (auto) 6.1 Absolute Lymphs (auto) 2.84 Total Counted Not Reportable PT 21.9 H INR 1.9 Sodium 136 Potassium 4.6 Chloride 99 Carbon Dioxide 30.0 Anion Gap 7 BUN 33 H Creatinine 1.04 H Estim Creat Clear Calc 49.81 Est GFR (MDRD) Af Amer 68 Est GFR (MDRD) Non-Af 56 L BUN/Creatinine Ratio 31.7 H Glucose 81 Calcium 8.7 Total Bilirubin 0.70 AST 31 ALT 42 Alkaline Phosphatase 94 Troponin I 0.24 H Total Protein 8.0 Albumin 4.3 Globulin 3.7 Albumin/Globulin Ratio 1.2 Assessment/Plan Patient was seen and examined with Amanda Perales, nurse practitioner. Agree with her history, physical exam, assessment and plan. In summary: Patient had a mitral valve with pain with CABG done in May 2017, has been following up with Dr. Sanchez in the outpatient, noted some pauses since June 2017. She has been seen at Dr. Sanchez's office 3 times, started Rehab 2 weeks ago, pauses were noted. This morning before she restarted her exercises, sinus pauses were noted, patient has remained asymptomatic throughout all these events. She denied any chest pain or dizziness or shortness of breath or leg swelling or any weight gain. Vitals in the ED as stable with heart rate of 89, blood pressure slightly elevated at 152/99. EKG showed normal sinus rhythm, heart rate of 61, with significant pulses that occur infrequently. Physical exam: GEN: Afebrile, alert and oriented ?3, not pale, not jaundiced, well hydrated CVS: HS I +II, present, regular, no murmurs were heard, sternal scar that is healing very well RESP: Clinically Clear to auscultation EXT: No edema ABD: BS +, Soft, non-tender, no palpable organs Assessment: 1. Sinus pauses, unclear etiology 2. Chronic systolic CHF with EF of 25%, patient needs AICD 3. CAD status post CABG 4. Status post mitral valve repair 5. Paroxysmal atrial fibrillation, in normal sinus rhythm 9, status post cardioversion May 2017, on Coumadin Plan: Discussed in depth with Dr. Woo was covering the [facility], comments transfer for AICD placement, does not recommend admission, ER to put patient on a Holter monitor. This is communicated back to the ED physician, patient will be discharged from the ED Code Visit Office Visits / Consults: [id number] IP Consult L5
[2017-09-22 17:48] VITALS: BP 158/98; BP 159/98; PULSE 89; RESP 18; O2SAT 100
== END 2017-09-22 17:49 | disposition home or self-care (01) ==
PROVIDERS: Emergency Provider Emergency Medicine; Family Provider Family Medicine; PCP Family Medicine
DX: I49.5 Sick sinus syndrome (principal); R00.1 Bradycardia, unspecified; I25.10 Atherosclerotic heart disease of native coronary artery without angina pectoris; I25.2 Old myocardial infarction; I10 Essential (primary) hypertension; E78.00 Pure hypercholesterolemia, unspecified; Z95.1 Presence of aortocoronary bypass graft; Z79.01 Long term (current) use of anticoagulants; Z79.82 Long term (current) use of aspirin; Z79.899 Other long term (current) drug therapy
CPT/HCPCS: 71045; 80053; 84484; 85025; 85610; 93005; 96360; 96361; 99285; J7030; A4216

== ENCOUNTER → 2017-09-22 17:38 | Outpatient (CLI) | payer MEDICARE, SELFPAY | PROVIDERS: Family Provider Family Medicine; PCP Family Medicine; Visit Provider Emergency Medicine | DX: R00.1 Bradycardia, unspecified (principal); I49.5 Sick sinus syndrome; I25.10 Atherosclerotic heart disease of native coronary artery without angina pectoris; I25.2 Old myocardial infarction; I10 Essential (primary) hypertension; E78.00 Pure hypercholesterolemia, unspecified; Z95.1 Presence of aortocoronary bypass graft; Z79.1 Long term (current) use of non-steroidal anti-inflammatories (NSAID); Z79.82 Long term (current) use of aspirin; Z79.899 Other long term (current) drug therapy; Z98.890 Other specified postprocedural states | CPT/HCPCS: 71045; 80053; 84484; 85025; 85610; 93005; 93225; 93226; 96360; 96361; 99285; J7030; A4216 ==

== ENCOUNTER → 2017-10-03 09:58 | Outpatient (CLI) | payer MEDICARE, SELFPAY ==
--- NOTE | 2017-10-03 10:00 | ECHOD_ITS ---
Reason For Study: CHF Procedure This was a 2D Doppler, Color Flow transthoracic echocardiogram. The study was technically difficult. Due to diminished accoustic windows. Exam performed in department. Left Ventricle Normal LV size. Moderate global left ventricular systolic dysfunction. The estimated ejection fraction is 35 %. No regional wall motion abnormalities noted. Right Ventricle Normal RV size. Mild global right ventricular systolic dysfunction. Atria The left atrium is mildly enlarged. Normal right atrium. Mitral Valve Bileaflet diffuse mitral valve thickening. Mild-Moderate (1-2+) eccentric mitral valve insufficiency. An annuloplasty ring is noted in the mitral position. Tricuspid Valve Normal tricuspid valve. Mild (1+) tricuspid valve insufficiency. Pulmonary artery systolic pressure is 40 mmHg. Aortic Valve Trisinus/trileaflet aortic valve. Mild focal aortic valve calcification. Pulmonic Valve Normal pulmonic valve. Great Vessels Normal aortic root. The pulmonary artery is normal size. Normal inferior vena cava. Pericardium/Pleural No pericardial effusion. MMode/2D Measurements & Calculations LVIDd: 5.1 cm IVSd: 1.1 cm Ao root diam: 3.0 cm LVIDs: 3.8 cm LVPWd: 1.00 cm LA dimension: 4.3 cm RVDd: 3.0 cm FS: 25.2 % LAV(MOD-bp): 61.0 ml LA A4 area: 21.1 cm2 LAV(MOD-bp) Indexed: 34.7 ml/m2 LAV(MOD-sp2): 52.9 ml LAV(MOD-sp4): 68.6 ml Time Measurements MV dec time: 0.18 sec Doppler Measurements & Calculations MV E max armen: 100.3 cm/sec Lat Peak E' Armen: 3.7 cm/sec Med Peak E' Armen: 3.5 cm/sec MV A max armen: 118.9 cm/sec E/E' lat: 26.8 E/E' med: 28.3 MV E/A: 0.84 Ao V2 max: 102.3 cm/sec LV V1 max: 77.6 cm/sec PA V2 max: 98.9 cm/sec Ao max P.2 mmHg LV V1 max P.4 mmHg TR max armen: 297.7 cm/sec TR max P.4 mmHg Interpretation Summary Normal LV size. Moderate global left ventricular systolic dysfunction. The estimated ejection fraction is 35 %. Bileaflet diffuse mitral valve thickening. An annuloplasty ring is noted in the mitral position. The left atrium is mildly enlarged. Compared to prior study, there is no significant change. Ordering Physician: Jannie Saunders Referring Physician: Kalya Chu Performed By: Jenni Carrera RDCS, RVT
== END ==
PROVIDERS: Family Provider Family Medicine; PCP Family Medicine; Visit Provider Physician Assistant Medical
DX: I50.21 Acute systolic (congestive) heart failure (principal)
CPT/HCPCS: 93306

== ENCOUNTER 2017-10-06 14:42 | Outpatient (RCR) | payer MEDICARE, SELFPAY ==
[2017-10-06 14:56] LABS: Prothrombin Time Fingerstick 24.9 SEC (11.9-14.4)
== END 2017-10-06 15:00 | disposition home or self-care (01) ==
LOC: LAB 14:42
PROVIDERS: Family Provider Family Medicine; PCP Family Medicine; Visit Provider Internal Medicine Cardiovascular Disease
DX: I48.91 Unspecified atrial fibrillation (principal)
CPT/HCPCS: 36416; 85610

== ENCOUNTER → 2017-10-09 14:18 | Outpatient (CLI) | payer MEDICARE, SELFPAY | PROVIDERS: Family Provider Family Medicine; PCP Family Medicine; Visit Provider Internal Medicine Cardiovascular Disease | DX: I45.5 Other specified heart block (principal); I48.91 Unspecified atrial fibrillation; I42.9 Cardiomyopathy, unspecified; I34.1 Nonrheumatic mitral (valve) prolapse; I34.0 Nonrheumatic mitral (valve) insufficiency; I31.3 Pericardial effusion (noninflammatory); I50.23 Acute on chronic systolic (congestive) heart failure; I25.10 Atherosclerotic heart disease of native coronary artery without angina pectoris; E78.5 Hyperlipidemia, unspecified; Z95.1 Presence of aortocoronary bypass graft; Z79.01 Long term (current) use of anticoagulants; Z98.890 Other specified postprocedural states | CPT/HCPCS: 93225; 93226 ==

== ENCOUNTER 2017-10-13 15:15 | Outpatient (RCR) | payer MEDICARE, SELFPAY ==
[2017-09-21 01:15] VITALS: BP 128/80; BP 144/82
--- NOTE | 2017-09-22 15:41 | EKG12_ITS ---
Test Reason : ARRHYTHMIA Blood Pressure : / mmHG Vent. Rate : 061 BPM Atrial Rate : 061 BPM P-R Int : 184 ms QRS Dur : 096 ms QT Int : 442 ms P-R-T Axes : 083 043 128 degrees QTc Int : 444 ms Sinus rhythm with marked sinus arrhythmia Septal infarct , age undetermined Abnormal ECG When compared with ECG of 22-SEP-2017 16:23, MANUAL COMPARISON REQUIRED, DATA IS UNCONFIRMED Confirmed by TRACI FRANKEL, ARTIE ([id number]), health editor TRUPTI TOMAS ([id number]) on 10/02/2017 3:29:22 PM Referred By: Omar Sanchez Confirmed By:ARTIE AVILES MD
--- NOTE | 2017-10-16 08:34 | PCM.CR.ITP ---
Exercise - Initial Assessment - Stages of Change Stages of Change:: Action - Exercise Prescription Mode:: Treadmill, Rower, Airdyne, NuStep Angina with exercise?: No Target Heart Rate:: 115-123 - Hypertension Do any of the following apply?: No - Intervention Home Exercise/Activity Goal:: Moderate Exercise 30 min/day x 5 days/wk - Education Goals:: Warm-up, RPE NEO Scale, S/S, Safe Exercise, Self-Monitoring - Exercise Program Goals Exercise Program Goals: Aerobic Activity >30 min Exercise - 30-day Assessment - Visit Date of Eval: 10/16/17 - 09/15-10/13/17 Session #:: 13 - Stages of Change Stages of Change:: Action - Exercise Prescription Mode:: Treadmill, Rower, Airdyne, NuStep Frequency (x/week): 3 Duration:: 30 METs - Progression: 0.5-1 MET as tolerated: 6 Target Heart Rate:: 115-123 max HR 136 - Hypertension Resting Blood Pressure:: 142/80 Peak Exercise Blood Pressure:: 142/80 Medication Changes:: Yes - Off beta miguel - Intervention Home Exercise/Activity Goal:: Moderate Exercise 30 min/day x 5 days/wk - Education Goals:: Warm-up, RPE NEO Scale, S/S, Safe Exercise, Self-Monitoring - Exercise Program Goals Exercise Program Goals: Aerobic Activity >30 min Exercise - Final/Discharge - Hypertension Do any of the following apply?: No Nutrition - Initial Assessment - Program Goals Nutrition Program Goals: LDL <70. Total Cholesterol <200. HDL >45. Triglycerides <150. HgbA1C <7%. BMI <25 - Stages of Change Stages of Change:: Action - Diabetes Diabetes:: No Non-Insulin Dependent?: No Do you monitor your blood sugar at home?: No - Weight Management Body Fat %:: 24 - Intervention Referral to dietitian:: No Referral to Diabetic Clinic:: No Will attend diet classes:: Yes - Education Gave educational materials for:: Healthy eating Nutrition - 30-Day Assessment - Program Goals Nutrition Program Goals: LDL <70. Total Cholesterol <200. HDL >45. Triglycerides <150. HgbA1C <7%. BMI <25 - Visit Date of Eval: 10/16/17 - 09/15-10/13/17 - Stages of Change Stages of Change:: Action - Lipids Has the patient seen the dietitian?: No - Diabetes Diabetes:: No Insulin: No Non-Insulin Dependent?: No - Weight Management Weight:: 67.132 kg - Intervention Referral to dietitian:: No Referral to Diabetic Clinic:: No Will attend diet classes:: Yes - Education Attended class for:: Healthy eating Nutrition - 60-Day Assessment - Program Goals Nutrition Program Goals: LDL <70. Total Cholesterol <200. HDL >45. Triglycerides <150. HgbA1C <7%. BMI <25 - Lipids Has the patient seen the dietitian?: No - Diabetes Diabetes:: No Insulin: No Non-Insulin Dependent?: No - Intervention Referral to dietitian:: No Referral to Diabetic Clinic:: No Will attend diet classes:: Yes - Education Attended class for:: Healthy eating Nutrition - 90-Day Assessment - Program Goals Nutrition Program Goals: LDL <70. Total Cholesterol <200. HDL >45. Triglycerides <150. HgbA1C <7%. BMI <25 - Lipids Has the patient seen the dietitian?: No - Diabetes Diabetes:: No Insulin: No Non-Insulin Dependent?: No - Intervention Referral to dietitian:: No Referral to Diabetic Clinic:: No Will attend diet classes:: Yes - Education Attended class for:: Healthy eating Nutrition - Final Assessment - Program Goals Nutrition Program Goals: LDL <70. Total Cholesterol <200. HDL >45. Triglycerides <150. HgbA1C <7%. BMI <25 - Diabetes Diabetes:: No Insulin: No Non-Insulin Dependent?: No - Weight Management Body Fat %:: 24 - Intervention Referral to dietitian:: No Referral to Diabetic Clinic:: No Will attend diet classes:: Yes Tobacco - Initial Assessment - Program Goals Tobacco Program Goals: Complete smoking cessation. Attend education classes. Improve Knowledge Test score - Stage of Change Stages of Change:: Action - Learning Barriers Learning Barriers: Vision - readers only., Ready to Learn - Family Support Do you have family support?: Yes - Tobacco Use Tobacco Use: Non-smoker Do you use smokeless tobacco?: No - Intervention Smoking Cessation Referral:: No Individual Education/Counseling:: No Education Schedule Given:: Yes - Education Gave educational material for:: Coronary artery disease, Risk factors, Sexuality, Medical compliance, Cardiac A&P, Angina signs & symptoms Tobacco - 30-Day Assessment - Program Goals Tobacco Program Goals: Complete smoking cessation. Attend education classes. Improve Knowledge Test score - Stage of Change Stages of Change:: Action - Learning Barriers Learning Barriers: Participates in education - Family Support Do you have family support?: Yes - Tobacco Use Tobacco Use: Non-smoker Do you use smokeless tobacco?: No - Intervention Smoking Cessation Referral:: No Individual Education/Counseling:: No Education Schedule Given:: Yes - Education Attended class for:: Tobacco triggers, Coronary artery disease, Risk factors, Sexuality, Medical compliance, Cardiac A&P, Angina signs & symptoms Tobacco - 60-Day Assessment - Program Goals Tobacco Program Goals: Complete smoking cessation. Attend education classes. Improve Knowledge Test score - Family Support Do you have family support?: Yes - Tobacco Use Tobacco Use: Non-smoker Do you use smokeless tobacco?: No - Intervention Smoking Cessation Referral:: No Individual Education/Counseling:: No Education Schedule Given:: Yes - Education Attended class for:: Coronary artery disease, Risk factors, Sexuality, Medical compliance, Cardiac A&P, Angina signs & symptoms Tobacco - 90-Day Assessment - Program Goals Tobacco Program Goals: Complete smoking cessation. Attend education classes. Improve Knowledge Test score - Family Support Do you have family support?: Yes - Tobacco Use Tobacco Use: Non-smoker Do you use smokeless tobacco?: No - Intervention Smoking Cessation Referral:: No Individual Education/Counseling:: No Education Schedule Given:: Yes - Education Attended class for:: Coronary artery disease, Risk factors, Sexuality, Medical compliance, Cardiac A&P, Angina signs & symptoms Tobacco - Final Assessment - Program Goals Tobacco Program Goals: Complete smoking cessation. Attend education classes. Improve Knowledge Test score - Family Support Do you have family support?: Yes - Tobacco Use Tobacco Use: Non-smoker Do you use smokeless tobacco?: No - Intervention Smoking Cessation Referral:: No Individual Education/Counseling:: No Education Schedule Given:: Yes Psychosocial - Initial Assess - Target Goals Target Goals: Assess presence or absence of depression. Using a valid screening tool, maximizes coping skills. Positive support system - Stages of Change Stages of Change:: Action - Psychosocial Test Tool Used:: HANDS Depression Questionnaire Total Mood Screening Score:: 0 Self-Efficacy Score:: 10 - Intervention PS - Interventions: Yes Attend Stress Management Classes, Yes Uses Stress Management Skills, No Referral to Mental Health, No Referral to [facility] Case Management, No Referral to Physician - Education Gave educational materials for:: Coping techniques, Signs & symptoms of depression, Stress management, Relaxation techniques - Patient/Program Goal Preventative Medication(s):: Aspirin, Clopidogrel, Statin/lipid - Assistive Devices Assistive Devices:: None Fall Risk Assessed:: Yes Psychosocial - 30-Day Assess - Target Goals Target Goals: Assess presence or absence of depression. Using a valid screening tool, maximizes coping skills. Positive support system - Stages of Change Stages of Change:: Action - Psychosocial Test Tool Used:: HANDS Depression Questionnaire Total Mood Screening Score:: 0 Self-Efficacy Score:: 10 - Intervention PS - Interventions: Yes Attend Stress Management Classes, Yes Uses Stress Management Skills, No Referral to Mental Health, No Referral to [facility] Case Management, No Referral to Physician - Education Attended classes for:: Coping techniques, Signs & symptoms of depression, Stress management, Relaxation techniques - Patient/Program Goal Preventative Medication(s):: Aspirin, Clopidogrel, Statin/lipid - Assistive Devices Assistive Devices:: None Fall Risk Assessed:: Yes Psychosocial - 60-Day Assess - Target Goals Target Goals: Assess presence or absence of depression. Using a valid screening tool, maximizes coping skills. Positive support system - Psychosocial Test Tool Used:: HANDS Depression Questionnaire Total Mood Screening Score:: 0 Self-Efficacy Score:: 10 - Education Attended classes for:: Coping techniques, Signs & symptoms of depression, Stress management, Relaxation techniques - Patient/Program Goal Preventative Medication(s):: Aspirin, Clopidogrel, Statin/lipid - Assistive Devices Assistive Devices:: None Fall Risk Assessed:: Yes Psychosocial - 90-Day Assess - Target Goals Target Goals: Assess presence or absence of depression. Using a valid screening tool, maximizes coping skills. Positive support system - Psychosocial Test Tool Used:: HANDS Depression Questionnaire Total Mood Screening Score:: 0 Self-Efficacy Score:: 10 - Education Attended classes for:: Coping techniques, Signs & symptoms of depression, Stress management, Relaxation techniques - Patient/Program Goal Preventative Medication(s):: Aspirin, Clopidogrel, Statin/lipid - Assistive Devices Assistive Devices:: None Fall Risk Assessed:: Yes Psychosocial - Final Assessmen - Target Goals Target Goals: Assess presence or absence of depression. Using a valid screening tool, maximizes coping skills. Positive support system - Psychosocial Test Tool Used:: HANDS Depression Questionnaire Total Mood Screening Score:: 0 Self-Efficacy Score:: 10 - Patient/Program Goal Preventative Medication(s):: Aspirin, Clopidogrel, Statin/lipid - Assistive Devices Assistive Devices:: None Fall Risk Assessed:: Yes Patient Health Questionnaire 30-Day Re-eval Assessment 1. Little interest or pleasure in doing things: Not at all 2. Feeling down, depressed, or hopeless: Not at all 3. Trouble falling or staying asleep, or sleeping too much: Not at all 4. Feeling tired or having little energy: Not at all 5. Poor appetite or overeating: Not at all 6. Feeling bad about yourself -- or that you are a failure or have let yourself or your family down: Not at all 7. Trouble concentrating on things, such as reading the newspaper or watching television: Not at all 8. Moving or speaking so slowly that other people could have noticed. Or the opposite - being so fidgety or restless that you have been moving around a lot more than usual: Not at all 9. Thoughts that you would be better off , or of hurting yourself in some way: Not at all How difficult have these problems made it for you to do your work, take care of things at home, or get along with other people?: Not difficult at all Total Score: 0 Self-Efficacy 30-Day Re-eval Assessment We would like to know how confident you are in doing certain activities. Please select your confidence level for:: Select your confidence level for the following using the scale 1-10 where 1 is not at all confident and 10 is totally confident. Your score is the average of all 6 responses. Fatigue: How confident are you that you can keep the fatigue caused by your disease from interfering with the things you want to do? Select Number: 10 Physical Discomfort or Pain: How confident are you that you can keep the physical discomfort or pain of your disease from interfering with the things you want to do? Select Number: 10 Emotional Distress: How confident are you that you can keep the emotional distress caused by your disease from interfering with the things you want to do? Select Number: 10 Other Symptoms or Health Problems: How confident are you that you can keep other symptoms or health problems from interfering with the things you want to do? Select Number: 10 Different Tasks and Activities: How confident are you that you can do the different tasks and activities needed to manage your health condition so as to reduce your need to see a doctor? Select Number: 10 Medication: How confident are you that you can do things other than just taking medication to reduce how much your illness affects your everyday life? Select Number: 10 Total Score:: 10 Cardiac Rehabilitation Goals - Cardiac Rehab Goals Cardiac Rehabilitation Goals: 1. Maintain the individual as the primary focus of care. 2. To improve the patient's quality of life. 3. Identification of cardiac risk factors and provide cardiac risk factor management. 4. Enhance the psychosocial status of the patient. 5. Reconditioning enough to allow the patient to resume customary activities. 6. Control symptoms of cardiac disease - Scale Scale for measuring improvement of personal goals: Enter appropriate number in Comments. 2 = Unchanged. 3 = Slightly Better. 4 = Moderate Improvement. 5 = Met my Goal 30-Day Re-eval Assessment Personal Goals: 30-day Re-assessment: Improve energy level, Improve knowledge of cardiac disease, Improve muscle strength and endurance, Control risk factors (learn risk factor modification)
[2017-10-16 08:40] VITALS: BP 142/80
== END 2017-10-21 23:59 ==
LOC: CR 15:15
PROVIDERS: Family Provider Family Medicine; PCP Family Medicine; Visit Provider Internal Medicine Cardiovascular Disease
DX: I25.10 Atherosclerotic heart disease of native coronary artery without angina pectoris (principal); Z95.2 Presence of prosthetic heart valve; Z95.1 Presence of aortocoronary bypass graft; Z98.890 Other specified postprocedural states
CPT/HCPCS: 93005; 93798

== ENCOUNTER 2017-10-25 09:59 | Outpatient (RCR) | payer MEDICARE, SELFPAY ==
[2017-10-22 01:02] VITALS: BP 142/80
[2017-10-25 10:12] LABS: Bacteria 0 SEEN /hpf (None Seen); Mucous, Urine 0 SEEN /hpf (<or=2+); Squamous Epithelial Cells - UA 0 SEEN /hpf (5-10); White Blood Cells 0 SEEN /hpf (0-5)
[2017-10-25 11:02] LABS: Color, Urine Yellow (Yellow); Glucose, Dipstick Normal (Normal); Ketone-Dipstick Negative (Negative); Leukocyte Esterase-Dipstick 25 /ul (Negative); Nitrite-Dipstick Negative (Negative); Occult Blood-Urine Negative /ul (Negative); Protein-Dipstick Negative (Negative); Specific Gravity, Urine 1.005 (1.002-1.030); Urine Bilirubin Dipstick Negative (Negative); Urine Clarity Clear (Clear); Urine Urobilinogen Normal (Normal)
[2017-10-25 11:06] LABS: Hematocrit 41.2 % (37-47); Hemoglobin 13.7 g/dl (12.0-15.0); Mean Corp Hgb Conc 33.3 g/gl (32-36); Mean Corpuscular Hgb 31.1 pg (27.0-32.0); Mean Corpuscular Volume 93.4 fL (81-99); Mean Platelet Vol. 9.8 fl (6.2-12.0); Platelet Count 240 K/mm3 (150-450); RBC Distribution Width CV 12.5 % (11.6-14.6); RBC Distribution Width SD 42.1 fl (35.1-43.9); Red Blood Count 4.41 M/mm3 (4.2-5.4); White Blood Count 9.2 K/mm3 (4.4-11.0)
[2017-10-25 11:09] LABS: International Normalized Ratio 2.1; Prothrombin Time (Protime)PT. 23.3 SECONDS (11.7-14.9)
[2017-10-25 11:12] LABS: Scan Indicated on CBC? Y/N NO
[2017-10-25 11:36] LABS: Anion Gap 7 (5-15); BUN 21 mg/dL (7-18); BUN/Creat Ratio 22.2 RATIO (10-20); Calcium,Total 9.2 mg/dL (8.5-10.1); Chloride 103 mmol/L (98-107); Creatinine, Serum 0.95 mg/dL (0.55-1.02); EST Glomerular Filtration Rate 63 mL/min (>60); Est Glom Filt Rate - Afr Amer 76 mL/min (>60); Glucose 79 mg/dL (74-106); Sodium Level 139 mmol/L (136-145)
[2017-10-25 11:42] LABS: Red Blood Cells-Urine 0-5 SEEN /hpf (0-5)
[2017-11-14 06:06] VITALS: BP 142/80
--- NOTE | 2017-11-14 06:07 | CR.ITP_ITS ---
Exercise - Final/Discharge - Visit Date of Eval: 11/14/17 - DISCHARGED 11/10/2017 Session #:: 12 - Stages of Change Stages of Change:: Relapse - Patient having EKG changes; postponed CR participation pending pacemaker implant. - Exercise Prescription Mode:: Treadmill, Rower, Airdyne, NuStep Frequency (x/week): 3 Duration:: 30 METs: 6 Target Heart Rate:: 115-123 - Hypertension Do any of the following apply?: Yes Resting Blood Pressure:: 142/80 - above optimal BP - Intervention Home Exercise/Activity Goal:: Moderate Exercise 30 min/day x 5 days/wk - Education Goal Progress: Progressing - Exercise Program Goals Exercise Program Goals: Aerobic Activity >30 min Nutrition - Initial Assessment - Program Goals Nutrition Program Goals: LDL <70. Total Cholesterol <200. HDL >45. Triglycerides <150. HgbA1C <7%. BMI <25 - Diabetes Do you monitor your blood sugar at home?: No Nutrition - Final Assessment - Program Goals Nutrition Program Goals: LDL <70. Total Cholesterol <200. HDL >45. Triglycerides <150. HgbA1C <7%. BMI <25 - Visit Date of Eval: 11/14/17 - Stages of Change Stages of Change:: Action - Diabetes Diabetes:: No - Weight Management Height: 5 ft 6 in Weight:: 148 lb - Intervention Referral to dietitian:: No Referral to Diabetic Clinic:: No Will attend diet classes:: Yes - Education Education Goal Reached?: Yes Tobacco - Initial Assessment - Program Goals Tobacco Program Goals: Complete smoking cessation. Attend education classes. Improve Knowledge Test score - Learning Barriers Learning Barriers: Vision - readers only., Ready to Learn Tobacco - Final Assessment - Program Goals Tobacco Program Goals: Complete smoking cessation. Attend education classes. Improve Knowledge Test score - Stage of Change Stages of Change:: Action - Family Support Do you have family support?: Yes - Tobacco Use Tobacco Use: Non-smoker Do you use smokeless tobacco?: No - Intervention Smoking Cessation Referral:: No Individual Education/Counseling:: No Education Schedule Given:: Yes - Education Education Goal Reached?: Yes Psychosocial - Initial Assess - Target Goals Target Goals: Assess presence or absence of depression. Using a valid screening tool, maximizes coping skills. Positive support system - Psychosocial Test Tool Used:: HANDS Depression Questionnaire - Assistive Devices Fall Risk Assessed:: Yes Psychosocial - Final Assessmen - Target Goals Target Goals: Assess presence or absence of depression. Using a valid screening tool, maximizes coping skills. Positive support system - Stages of Change Stages of Change:: Action - Psychosocial Test Tool Used:: HANDS Depression Questionnaire - Intervention PS - Interventions: Yes Attend Stress Management Classes, Yes Uses Stress Management Skills, No Referral to Mental Health, No Referral to [facility] Case Management, No Referral to Physician - Education Education Goal Reached?: Yes - Patient/Program Goal Preventative Medication(s):: Aspirin, Clopidogrel, Statin/lipid - Assistive Devices Assistive Devices:: None Fall Risk Assessed:: Yes Patient Health Questionnaire Discharge Assessment 1. Little interest or pleasure in doing things: Not at all 2. Feeling down, depressed, or hopeless: Not at all 3. Trouble falling or staying asleep, or sleeping too much: Not at all 4. Feeling tired or having little energy: Not at all 5. Poor appetite or overeating: Not at all 6. Feeling bad about yourself -- or that you are a failure or have let yourself or your family down: Not at all 7. Trouble concentrating on things, such as reading the newspaper or watching television: Not at all 8. Moving or speaking so slowly that other people could have noticed. Or the opposite - being so fidgety or restless that you have been moving around a lot more than usual: Not at all 9. Thoughts that you would be better off , or of hurting yourself in some way: Not at all Total Score: 0 JAMAR-Q SV Test - Statements CAD is a disease of the arteries in the heart: False Examples of risk factors for heart disease: True Angina is chest pain or discomfort: True The benefits of resistance training include: True Eating more meat and dairy products: False Anti-platelet medications such as aspirin are important: True The only effective way to manage stress: False An exercise warm-up slowly increases heart rate: True Prepared, processed foods usually have high sodium: True Depression is common after a heart attack: True The statin medications lower cholesterol: True To control blood pressure, lower the amount of sodium: True If someone gets chest discomfort during walking: False Transfats are partially hydrogenated vegetable oils: True Sleep apnea that is not treated increases the risk: False To control cholesterol, one should become a vegetarian: False Someone knows if he/she is exercising at the right level: True Diabetes cannot be prevented with exercise & health eating: False Stress is a large risk for heart attack: True A diet that can help lower blood pressure is rich in: True - Total Score Total Correct Responses: 19 Self-Efficacy Discharge Assessment We would like to know how confident you are in doing certain activities. Please select your confidence level for:: Select your confidence level for the following using the scale 1-10 where 1 is not at all confident and 10 is totally confident. Your score is the average of all 6 responses. Fatigue: How confident are you that you can keep the fatigue caused by your disease from interfering with the things you want to do? Select Number: 10 Physical Discomfort or Pain: How confident are you that you can keep the physical discomfort or pain of your disease from interfering with the things you want to do? Select Number: 10 Emotional Distress: How confident are you that you can keep the emotional distress caused by your disease from interfering with the things you want to do? Select Number: 10 Other Symptoms or Health Problems: How confident are you that you can keep other symptoms or health problems from interfering with the things you want to do? Select Number: 10 Different Tasks and Activities: How confident are you that you can do the different tasks and activities needed to manage your health condition so as to reduce your need to see a doctor? Select Number: 10 Medication: How confident are you that you can do things other than just taking medication to reduce how much your illness affects your everyday life? Select Number: 10 Total Score:: 10 Nutrition Survey - Nutrition Survey Instructions Scoring Instructions: Scoring is as follows: Yes = 1 points. No = 0 point. Patient score that is >/=12 is considered to be at potential nutritional risk and could benefit from a referral to a registered dietitian. - Nutrition Survey Discharge Have you lost >10 lbs over the past 2 months without trying?: No Are you following a special diet at home for diabetes, low fat, or low salt?: No Are you interested in meeting with a dietitian for help understanding your diet? : No Do you eat less than 3 meals a day?: No Do you eat fatty meats (tovar, sausage, ribs, etc), fried foods, desserts, large amounts of salad dressings, margarine, butter, or cheese most days?: No Do you have food allergies? [Enter types in comment field]: No Do you eat in restaurants more than 3 times a week?: Yes Do you season food with salt, seasoning salt, or garlic salt?: No Do you used canned, boxed, frozen meals, or soups, seasoning packets?: Yes Total Score:: 2
== END 2017-11-20 23:59 ==
LOC: CR 09:59
PROVIDERS: Internal Medicine Cardiovascular Disease; Family Provider Family Medicine; PCP Family Medicine; Visit Provider Internal Medicine Cardiovascular Disease
DX: I25.10 Atherosclerotic heart disease of native coronary artery without angina pectoris (principal); Z95.2 Presence of prosthetic heart valve; Z95.1 Presence of aortocoronary bypass graft; Z98.890 Other specified postprocedural states
CPT/HCPCS: 36415; 80048; 81001; 85027; 85610; 93798

== ENCOUNTER 2017-11-02 09:59 | Day surgery (SDC) | payer MEDICARE, SELFPAY ==
[2017-11-01 12:28] VITALS: BMI 23.7
[2017-11-02] VITALS (16 sets, daily range): BP systolic 98–130; BP diastolic 47–63; PULSE 57–76; RESP 14–16; TEMP 36.8–37.4; O2SAT 94–98
--- NOTE | 2017-11-02 12:22 | PCM.OP.BLANK ---
Operative Report Date of Procedure: 11/02/17 Preoperative diagnosis implantation of [ DUAL CHAMBER ICD PRIMARY PREVENTION AND MANAGEMENT OF SYMPTOMATIC BRADYCARDIA] Postoperative diagnosis same as above After informed consent and IV antibiotics the patient was brought to the [facility] catheterization laboratory. The [ ] side of the chest was prepped and draped in the usual sterile manner. The patient was sedated with intermittent boluses of IV Versed fentanyl and propofol as well as subcutaneous 1% lidocaine. An incision was made inferior to the clavicle to accommodate the size of the hardware device. The pocket was created using blunt and Bovie dissection. Hemostasis was obtained. Using the Seldinger technique the axillary vein was cannulated twice and a guidewire was advanced under fluoroscopic guidance. Over the guidewire the sheaths were advanced. Through the sheaths, the electrodes were positioned under fluoroscopic guidance into the right ventricle and right atrium and was actively fixated. Once actively fixated, the leads were tested to check for proper sensing, capture threshold, impedance and to exclude diaphragmatic stimulation. Once the leads were implanted and all electrical parameters were confirmed to be functioning normally with appropriate values, the leads was then sutured to the pectoralis muscle with 2-0 silk on the Silastic collar ?2. The sponge and needle count were correct. Hemostasis was obtained. Antibiotic solution was used to flush the pocket. The new device was brought to the field. The leads were placed in the appropriate position of the header of the device and were secured by the setscrews and confirmed by the tug test. The device and the leads were then placed in the pocket. Pocket was closed with a deep layer of running 2-0 Vicryl, superficial layer of running 4-0 Vicryl and skin with Steri-Strips that were covered with a rolled 4 x 4's and Tegaderm. The patient left the lab with the device programmed to chronic parameters. There were no complications. The device is a AV ICD [employer] device Lead and device serial and model numbers are available in the chart documents provided by the device company retention representative procedure summary.
--- NOTE | 2017-11-02 12:25 | OP.PCM_ITS ---
Operative Report Date of Procedure: 11/02/17 Preoperative diagnosis implantation of [ DUAL CHAMBER ICD PRIMARY PREVENTION AND MANAGEMENT OF SYMPTOMATIC BRADYCARDIA] Postoperative diagnosis same as above After informed consent and IV antibiotics the patient was brought to the [facility] catheterization laboratory. The [ ] side of the chest was prepped and draped in the usual sterile manner. The patient was sedated with intermittent boluses of IV Versed fentanyl and propofol as well as subcutaneous 1% lidocaine. An incision was made inferior to the clavicle to accommodate the size of the hardware device. The pocket was created using blunt and Bovie dissection. Hemostasis was obtained. Using the Seldinger technique the axillary vein was cannulated twice and a guidewire was advanced under fluoroscopic guidance. Over the guidewire the sheaths were advanced. Through the sheaths, the electrodes were positioned under fluoroscopic guidance into the right ventricle and right atrium and was actively fixated. Once actively fixated, the leads were tested to check for proper sensing, capture threshold, impedance and to exclude diaphragmatic stimulation. Once the leads were implanted and all electrical parameters were confirmed to be functioning normally with appropriate values, the leads was then sutured to the pectoralis muscle with 2-0 silk on the Silastic collar ?2. The sponge and needle count were correct. Hemostasis was obtained. Antibiotic solution was used to flush the pocket. The new device was brought to the field. The leads were placed in the appropriate position of the header of the device and were secured by the setscrews and confirmed by the tug test. The device and the leads were then placed in the pocket. Pocket was closed with a deep layer of running 2-0 Vicryl, superficial layer of running 4-0 Vicryl and skin with Steri- Strips that were covered with a rolled 4 x 4's and Tegaderm. The patient left the lab with the device programmed to chronic parameters. There were no complications. The device is a AV ICD [employer] device Lead and device serial and model numbers are available in the chart documents provided by the device company outside sales representative insurance procedure summary.
[2017-11-02] MEDS: Acetaminophen 325 MG Tablet PO (22:24)
[2017-11-02] MEDS: Zolpidem Tartrate 5 MG Tablet PO (23:42)
[2017-11-03 04:10] VITALS: PULSE 69
[2017-11-03 04:30] VITALS: BP 108/61; PULSE 59; RESP 16; TEMP 36.4; O2SAT 99
--- NOTE | 2017-11-03 05:55 | RAD_ITS ---
STUDY: X-RAY CHEST REASON FOR EXAM: Female, 66 years old. ICD placement. TECHNIQUE: PA and lateral views of the chest. COMPARISON: Comparison is made with prior study dated September 22, 2017. FINDINGS: A left-sided ICD has been placed. The leads are in good position. The lungs are clear and expanded. There is no demonstrated pleural abnormality. Sternal cerclage wires are present from a prior sternotomy. The patient is status post mitral valve replacement. Normal mediastinum and ruby. Normal visualized pulmonary arteries. Normal visualized aortic arch and descending thoracic aorta. There are degenerative changes of the visualized thoracic spine. Normal visualized ribs, clavicles, and shoulders. There is no demonstrated abnormality of the visualized soft tissue structures of the upper abdomen. RAD/Chest PA and Lateral IMPRESSION: Status post ICD placement. The leads are in good position. Electronically Signed: Boston Kiran MD at 7:58 EDT Tel [phone], Service support ,
--- NOTE | 2017-11-03 06:51 | RAD_ITS ---
STUDY: X-RAY CHEST REASON FOR EXAM: Female, 66 years old. ICD placement. TECHNIQUE: Single AP expiration portable view of the chest. COMPARISON: Comparison is made with prior examination on earlier today. FINDINGS: A left-sided ICD is seen. The leads are in good position. EKG electrodes are present. There is no evidence of pneumothorax. RAD/Chest 1 View IMPRESSION: Status post left ICD placement. The leads are in good position. There is no evidence of pneumothorax. Electronically Signed: Boston Kiran MD at 7:59 EDT Tel [phone], Service support ,
[2017-11-03 07:03] LABS: Anion Gap 6 (5-15); BUN 23 mg/dL (7-18); BUN/Creat Ratio 25.9 RATIO (10-20); Calcium,Total 8.6 mg/dL (8.5-10.1); Chloride 106 mmol/L (98-107); Creatinine, Serum 0.89 mg/dL (0.55-1.02); EST Glomerular Filtration Rate 67 mL/min (>60); Est Glom Filt Rate - Afr Amer 82 mL/min (>60); Estimated Creatinine Clearance 58.21 ml/min; Glucose 97 mg/dL (74-106); Potassium 4.3 mmol/L (3.5-5.1); Sodium Level 138 mmol/L (136-145)
[2017-11-03 07:11] VITALS: PULSE 62
[2017-11-03] MEDS: Acetaminophen 325 MG Tablet PO (07:32)
[2017-11-03 08:05] VITALS: RESP 18
--- NOTE | 2017-11-03 10:32 | PCM.PACRNU ---
Pacer Nurse Hospital Visit Notes: Dual Chamber ICD Evaluation: 1st day post implant check completed at bedside [id number]. Interrogation shows no VT/VF episodes and no MS episodes since implant. Left pectoral pocket/incision DSD intact with scant amount of drainage on dressing that is circled. No hematoma noted and moderate amount of ecchymosis noted under axilla noted. Presenting rhythm shows NSR @ 68 bpm. ADMINISTRATIVE PROFESSIONAL=0%, AP=19%. Battery approx >7 yrs. P waves=5mv; R waves=13.5mV, Atrial esebvyxwj=854 Ohms, Ventricular eavaxzoun=095 Ohms, Atrial threshold 0.5V/0.4ms, Ventricular threshold 0.4V/0.4ms. No parameter changes made. Counters cleared. Wound care and left arm restriction instructions given to pt and spouse. Wound check appt scheduled for 11/10/17 @ 1:30pm. Rupal De La Cruz RN - Pacer Check Procedure Procedures: 86165 ICD Eval Dual
[2017-11-03 10:57] VITALS: BP 149/73; PULSE 65; RESP 18; TEMP 36.9; O2SAT 98
[2017-11-03 11:14] VITALS: PULSE 75
--- NOTE | 2017-11-03 11:18 | PN.CARD_ITS ---
Subjectve: The patient is status post ICD implant. She denies any ongoing symptoms of chest discomfort or difficulty breathing. Objective: Vital Signs Temp Pulse Resp BP Pulse Ox 98.5 F 65 18 149/73 H 98 11/03/17 10:57 11/03/17 10:57 11/03/17 10:57 11/03/17 10:57 11/03/17 10:57 Oxygen Delivery Method Room Air Weight: 147 lb Body Mass Index (BMI) 23.7 Intake and Output for Last 24 Hours 11/01/17 11/02/17 11/03/17 23:59 23:59 23:59 Intake Total 854 / 854 800 / 800 Output Total 780 / 780 275 / 275 Balance 74 / 74 525 / 525 General: Awake, Alert, Oriented x 3, Cooperative, No Acute Distress Neck: No JVD Chest Wall: - - Left pectoral area: Surgical dressing: Clean and dry Lungs: Clear to auscultation Cardiovascular: Regular Rhythm, Normal S1, Normal S2 Abdomen: Bowel Sounds Present, Soft, Non Tender Extremities: No Cyanosis, No Clubbing, No edema 11/03/17 06:25: Sodium 138, Potassium 4.3, Chloride 106, Carbon Dioxide 26.0, Anion Gap 6, BUN 23 H, Creatinine 0.89, Est GFR (MDRD) Af Amer 82, Est GFR (MDRD ) Non-Af 67, BUN/Creatinine Ratio 25.9 H, Glucose 97, Calcium 8.6 Rhythm: Sinus rhythm; intermittent electronic atrial paced rhythm CXR: Per radiology: No post procedure related pneumothorax or other obvious complication Medical Necessity - Tobacco Use Smoking Status: Never smoker Assessment/Plan 1. Ischemic cardiomyopathy status post dual-chamber ICD implant At the present time the patient appears to be doing well status post replacement of her dual-chamber ICD. She will continue medical management and outpatient follow-up with respect to wound care and subsequent ICD evaluation and care. 2. CAD status post CABG At the present time the patient appears to be doing well with no acute symptoms regarding her underlying coronary artery or graft status. She will continue risk factor modification and medical management. 3. Mitral valve disease status post mitral valve repair The patient is status post a mitral valve repair. She appears to be doing well with no acute symptoms. She will continue outpatient follow-up. 4. Cardiac dysrhythmia with history of atrial fibrillation/flutter and underlying conduction system disease The patient will continue to be followed. Her ICD will be used to monitor her cardiac rhythm and her conduction system related abnormalities. She will be considered for future additional medical management with beta-miguel therapy which may benefit her underlying cardiovascular status now that she has an ICD in place. Overall, the patient will be released home for continued outpatient follow-up. This will include outpatient ICD wound care follow-up and ICD interrogation as well as outpatient cardiovascular follow-up. This note was generated with [employer] software. It may contain incorrect words, spelling, and punctuation that were not noted in checking the note before signing.
== END 2017-11-03 11:11 | disposition home or self-care (01) ==
LOC: CLSP 10:01 → PCU 13:01
PROVIDERS: Internal Medicine Cardiovascular Disease; Family Provider Family Medicine; PCP Family Medicine; Visit Provider Internal Medicine Cardiovascular Disease
DX: R00.1 Bradycardia, unspecified (principal); Z00.6 Encounter for examination for normal comparison and control in clinical research program; I25.10 Atherosclerotic heart disease of native coronary artery without angina pectoris; I25.5 Ischemic cardiomyopathy; I48.2 Chronic atrial fibrillation; I34.0 Nonrheumatic mitral (valve) insufficiency; I50.22 Chronic systolic (congestive) heart failure; I48.92 Unspecified atrial flutter; Z95.1 Presence of aortocoronary bypass graft; Z79.899 Other long term (current) drug therapy; Z79.82 Long term (current) use of aspirin; Z79.01 Long term (current) use of anticoagulants
CPT/HCPCS: 33249; 36415; 36416; 71045; 71046; 80048; 85610; 93641; 99152; 99153; J7030; J7050; A4216; C1894; J2405

== ENCOUNTER 2017-11-28 14:45 | Outpatient (RCR) | payer MEDICARE, SELFPAY ==
[2017-11-21 00:49] VITALS: BP 142/80
[2017-11-28 15:00] LABS: Prothrombin Time Fingerstick 22.2 SEC (11.9-14.4)
== END 2017-12-21 23:59 ==
LOC: CR 14:45
PROVIDERS: Family Provider Family Medicine; PCP Family Medicine; Visit Provider Internal Medicine Cardiovascular Disease
DX: I25.10 Atherosclerotic heart disease of native coronary artery without angina pectoris (principal); Z95.2 Presence of prosthetic heart valve; Z95.1 Presence of aortocoronary bypass graft; Z98.890 Other specified postprocedural states
CPT/HCPCS: 36416; 85610

== ENCOUNTER 2017-12-21 15:56 | Outpatient (RCR) | payer MEDICARE, SELFPAY ==
[2017-12-21 16:11] LABS: Prothrombin Time Fingerstick 21.2 SEC (11.9-14.4)
== END 2017-12-21 16:00 | disposition home or self-care (01) ==
LOC: LAB 15:56
PROVIDERS: Family Provider Family Medicine; PCP Family Medicine; Visit Provider Internal Medicine Cardiovascular Disease
DX: I48.91 Unspecified atrial fibrillation (principal)
CPT/HCPCS: 36416; 85610

== ENCOUNTER 2018-01-15 09:34 | Outpatient (RCR) | payer MEDICARE, SELFPAY ==
[2018-01-15 09:55] LABS: Prothrombin Time Fingerstick 26.1 SEC (11.9-14.4)
== END 2018-01-15 10:00 | disposition home or self-care (01) ==
LOC: LAB 09:34
PROVIDERS: Family Provider Family Medicine; PCP Family Medicine; Visit Provider Internal Medicine Cardiovascular Disease
DX: I48.91 Unspecified atrial fibrillation (principal)
CPT/HCPCS: 36416; 85610

== ENCOUNTER 2018-02-14 15:25 | Outpatient (RCR) | payer MEDICARE, SELFPAY ==
[2018-02-14 16:13] LABS: International Normalized Ratio 2.8; Prothrombin Time (Protime)PT. 29.4 SECONDS (11.7-14.9)
== END 2018-02-14 17:00 | disposition home or self-care (01) ==
LOC: LAB 15:25
PROVIDERS: Family Provider Family Medicine; PCP Family Medicine; Visit Provider Internal Medicine Cardiovascular Disease
DX: I48.91 Unspecified atrial fibrillation (principal)
CPT/HCPCS: 36415; 84443; 85610

== ENCOUNTER 2018-03-13 10:34 | Outpatient (RCR) | payer MEDICARE, SELFPAY ==
[2018-03-13 10:46] LABS: Prothrombin Time Fingerstick 27.9 SEC (11.9-14.4)
== END 2018-03-13 12:00 | disposition home or self-care (01) ==
LOC: LAB 10:34
PROVIDERS: Family Provider Family Medicine; PCP Family Medicine; Visit Provider Internal Medicine Cardiovascular Disease
DX: I48.91 Unspecified atrial fibrillation (principal)
CPT/HCPCS: 36416; 85610

== ENCOUNTER 2018-04-19 13:07 | Outpatient (RCR) | payer MEDICARE, SELFPAY ==
[2018-04-19 13:21] LABS: Prothrombin Time Fingerstick 23.9 SEC (11.9-14.4)
== END 2018-04-19 14:00 | disposition home or self-care (01) ==
LOC: LAB 13:07
PROVIDERS: Family Provider Family Medicine; PCP Family Medicine; Visit Provider Internal Medicine Cardiovascular Disease
DX: I48.91 Unspecified atrial fibrillation (principal)
CPT/HCPCS: 36416; 85610

== ENCOUNTER 2018-05-15 13:16 | Outpatient (RCR) | payer MEDICARE, SELFPAY ==
[2018-05-15 13:31] LABS: Prothrombin Time Fingerstick 21.9 SEC (11.9-14.4)
== END 2018-05-15 15:00 | disposition home or self-care (01) ==
LOC: LAB 13:16
PROVIDERS: Family Provider Family Medicine; PCP Family Medicine; Referring Provider Internal Medicine Cardiovascular Disease; Visit Provider Internal Medicine Cardiovascular Disease
DX: I48.91 Unspecified atrial fibrillation (principal)
CPT/HCPCS: 36416; 85610

== ENCOUNTER 2018-06-28 09:20 | Outpatient (RCR) | payer MEDICARE, SELFPAY ==
[2018-06-28 09:36] LABS: Prothrombin Time Fingerstick 24.2 SEC (11.9-14.4)
== END 2018-06-28 10:00 | disposition home or self-care (01) ==
LOC: LAB 09:20
PROVIDERS: Family Provider Family Medicine; PCP Family Medicine; Referring Provider Internal Medicine Cardiovascular Disease; Visit Provider Internal Medicine Cardiovascular Disease
DX: I48.91 Unspecified atrial fibrillation (principal); Z79.01 Long term (current) use of anticoagulants; Z98.890 Other specified postprocedural states
CPT/HCPCS: 36416; 85610

== ENCOUNTER 2018-08-30 10:42 | Outpatient (RCR) | payer MEDICARE, SELFPAY ==
[2018-07-10 13:13] VITALS: BMI 25.4
[2018-08-30 10:52] LABS: Prothrombin Time Fingerstick 22.6 SEC (11.9-14.4)
== END 2018-09-20 14:54 | disposition home or self-care (01) ==
LOC: LAB 10:42
PROVIDERS: Family Provider Family Medicine; PCP Family Medicine; Referring Provider Internal Medicine Cardiovascular Disease; Visit Provider Internal Medicine Cardiovascular Disease
DX: I48.91 Unspecified atrial fibrillation (principal); Z79.01 Long term (current) use of anticoagulants; Z98.890 Other specified postprocedural states
CPT/HCPCS: 36416; 85610

== ENCOUNTER 2018-10-19 10:29 | Outpatient (RCR) | payer MEDICARE, SELFPAY ==
[2018-07-10 13:13] VITALS: BMI 25.4
[2018-10-19 10:51] LABS: Prothrombin Time Fingerstick 15.7 SEC (11.9-14.4)
== END 2018-10-19 11:00 | disposition home or self-care (01) ==
LOC: LAB 10:29
PROVIDERS: Family Provider Family Medicine; PCP Family Medicine; Referring Provider Internal Medicine Cardiovascular Disease; Visit Provider Internal Medicine Cardiovascular Disease
DX: I48.91 Unspecified atrial fibrillation (principal); Z79.01 Long term (current) use of anticoagulants; Z98.890 Other specified postprocedural states
CPT/HCPCS: 36416; 85610

== ENCOUNTER 2018-11-15 14:21 | Outpatient (RCR) | payer MEDICARE, SELFPAY ==
[2018-07-10 13:13] VITALS: BMI 25.4
[2018-10-31 13:46] LABS: Prothrombin Time Fingerstick 23.7 SEC (11.9-14.4)
[2018-11-15 15:04] LABS: Absolute Lymphocyte Count 2.32 X10^3/ul (0.83-4.51); Absolute Neutrophil Count 5.9 X10^3/uL (2.0-7.7); Basophil# 0.04 X10^3/uL; Basophil% 0.5 % (0-1); Eosinophil# 0.12 X10^3/uL; Eosinophils% 1.4 % (0-5); Hemoglobin 13.4 g/dl (12.0-15.0); Lymphocyte # 2.32 X10^3/ul (4.0); Lymphocyte % 26.2 % (19-41); Mean Corp Hgb Conc 33.5 g/gl (32-36); Mean Corpuscular Hgb 30.6 pg (27.0-32.0); Mean Corpuscular Volume 91.3 fL (81-99); Mean Platelet Vol. 10.2 fl (6.2-12.0); Monocyte# 0.46 X10^3/uL; Monocyte% 5.2 % (0-10); Neutrophil # 5.91 X10^3/uL (2.7-7.7); Neutrophil % 66.6 % (47-70); Platelet Count 219 K/mm3 (150-450); RBC Distribution Width CV 12.4 % (11.6-14.6); RBC Distribution Width SD 40.7 fl (35.1-43.9); Red Blood Count 4.38 M/mm3 (4.2-5.4); White Blood Count 8.9 K/mm3 (4.4-11.0)
[2018-11-15 15:06] LABS: POSITIVE COUNT NO; POSITIVE DIFFERENTIAL NO; POSITIVE MORPHOLOGY NO
[2018-11-15 15:11] LABS: International Normalized Ratio 2.1; Prothrombin Time (Protime)PT. 23.1 SECONDS (11.7-14.9)
[2018-11-15 15:39] LABS: Anion Gap 7 (5-15); BUN 25 mg/dL (7-18); BUN/Creat Ratio 22.7 RATIO (10-20); Calcium,Total 8.7 mg/dL (8.5-10.1); Chloride 103 mmol/L (98-107); EST Glomerular Filtration Rate 53 mL/min (>60); Est Glom Filt Rate - Afr Amer 64 mL/min (>60); Glucose 122 mg/dL (74-106); Potassium 3.8 mmol/L (3.5-5.1); Sodium Level 140 mmol/L (136-145)
== END 2018-11-20 16:00 | disposition home or self-care (01) ==
LOC: LAB 14:21
PROVIDERS: Physician Assistant Medical; Family Provider Family Medicine; PCP Family Medicine; Referring Provider Internal Medicine Cardiovascular Disease; Visit Provider Internal Medicine Cardiovascular Disease
DX: I48.91 Unspecified atrial fibrillation (principal); Z79.01 Long term (current) use of anticoagulants; Z98.890 Other specified postprocedural states
CPT/HCPCS: 36415; 36416; 80048; 85025; 85610

== ENCOUNTER → 2018-11-15 | Outpatient (CLI) | payer MEDICARE, SELFPAY ==
[2018-10-30 13:48] VITALS: BMI 25.8
--- NOTE | 2018-11-15 14:40 | ECHOD_ITS ---
Reason For Study: dyspnea/SOB Procedure This was a 2D Doppler, Color Flow transthoracic echocardiogram. The study was technically difficult. Due to diminished accoustic windows. Exam performed in department. Left Ventricle Normal LV size. Mild global left ventricular systolic dysfunction. The estimated ejection fraction is 45 %. There is evidence of diastolic dysfunction. Right Ventricle Normal RV size. ICD or pacer leads identified within the right ventricle. Normal systolic function. Atria The left atrium is mildly enlarged. Normal right atrium. ICD or pacer leads identified within the right atrium. No doppler evidence for ASD. Mitral Valve Mild diffuse mitral valve thickening. Mild focal mitral valve calcification of the anterior leaflet. An annuloplasty ring is noted in the mitral position. MIld (1+) transvalvular insufficiency of the mitral valve. Tricuspid Valve Normal tricuspid valve. Mild tricuspid valve insufficiency. Right ventricular systolic pressure estimated to be 24 mmHg. Aortic Valve The aortic valve is not well visualized. Pulmonic Valve The pulmonic valve is not well visualized. Trivial pulmonic valve insufficiency. Great Vessels Normal aortic root. Pericardium/Pleural No pericardial effusion. MMode/2D Measurements & Calculations LVIDd: 4.8 cm IVSd: 0.99 cm Ao root diam: 3.0 cm LVIDs: 3.6 cm LVPWd: 0.95 cm RVDd: 4.0 cm FS: 25.0 % LAV(MOD-bp): 71.4 ml EDV(MOD-sp4): 111.6 ml EDV(MOD-sp2): 80.9 ml LAV(MOD-bp) Indexed: 38.9 ml/m2 ESV(MOD-sp4): 56.5 ml EF(MOD-sp2): 47.8 % LAV(MOD-sp2): 72.9 ml EF(MOD-sp4): 49.3 % LAV(MOD-sp4): 69.0 ml SV(MOD-sp4): 55.1 ml SV(MOD-sp2): 38.7 ml LA A4 area: 21.7 cm2 LA dimension(2D): 4.1 cm RA A4 area: 19.2 cm2 Time Measurements MV dec time: 0.27 sec Doppler Measurements & Calculations MV E max armen: 84.4 cm/sec Lat Peak E' Armen: 3.9 cm/sec Med Peak E' Armen: 4.0 cm/sec MV A max armen: 101.4 cm/sec E/E' lat: 21.6 E/E' med: 21.3 MV E/A: 0.83 Ao V2 max: 101.5 cm/sec LV V1 max: 69.9 cm/sec PA V2 max: 72.8 cm/sec Ao max P.1 mmHg LV V1 max P.0 mmHg TR max armen: 231.5 cm/sec TR max P.4 mmHg Interpretation Summary The study was technically difficult. Mild global left ventricular systolic dysfunction. The estimated ejection fraction is 45 %. The left atrium is mildly enlarged. An annuloplasty ring is noted in the mitral position. Mild diffuse mitral valve thickening. Mild focal mitral valve calcification of the anterior leaflet. MIld (1+) transvalvular insufficiency of the mitral valve. Mild tricuspid valve insufficiency. Trivial pulmonic valve insufficiency. Right ventricular systolic pressure estimated to be 24 mmHg. There is evidence of diastolic dysfunction. Ordering Physician: Jannie Saunders Referring Physician: Kayla Chu Performed By: Jenni Carrera, LILIYA, RVT
== END | disposition home or self-care (01) ==
LOC: CVS 14:23
PROVIDERS: Family Provider Family Medicine; PCP Family Medicine; Referring Provider Physician Assistant Medical; Visit Provider Physician Assistant Medical
DX: I48.91 Unspecified atrial fibrillation (principal); Z79.01 Long term (current) use of anticoagulants; Z98.890 Other specified postprocedural states
CPT/HCPCS: 36415; 80048; 85025; 85610; 93306

== ENCOUNTER 2019-01-09 11:46 | Outpatient (RCR) | payer MEDICARE, SELFPAY ==
[2018-11-21 11:39] VITALS: BMI 25.4
== END 2019-01-09 12:00 | disposition home or self-care (01) ==
LOC: LAB 11:46
PROVIDERS: Family Provider Family Medicine; PCP Family Medicine; Referring Provider Internal Medicine Cardiovascular Disease; Visit Provider Internal Medicine Cardiovascular Disease
DX: I48.91 Unspecified atrial fibrillation (principal); Z79.01 Long term (current) use of anticoagulants; Z98.890 Other specified postprocedural states
CPT/HCPCS: 36416; 85610

== ENCOUNTER 2019-02-26 09:50 | Outpatient (RCR) | payer MEDICARE, SELFPAY ==
[2019-01-09 17:00] VITALS: BMI 25.8
[2019-02-18 10:15] VITALS: BMI 25.8
[2019-02-26 10:58] LABS: International Normalized Ratio 2.3; Prothrombin Time (Protime)PT. 25.1 SECONDS (11.7-14.9)
[2019-02-26 11:30] LABS: AST(SGOT) 22 U/L (15-37); Alanine Aminotransfer ALT/SGPT 34 U/L (13-56); Alkaline Phosphatase 68 U/L (45-117); Bilirubin, Direct 0.16 mg/dL (0.00-0.30); Cholesterol 129 mg/dL (200); Globulin 2.8 g/dL (2.2-4.2); High Density Lipoprotein 49 mg/dL; Protein, Total 6.8 g/dL (6.4-8.2); Triglycerides 167 mg/dL; Very Low Density Lipoprotein 33 mg/dL (5-40)
== END 2019-02-26 12:00 | disposition home or self-care (01) ==
LOC: LAB 09:50
PROVIDERS: Family Provider Family Medicine; PCP Family Medicine; Referring Provider Internal Medicine Cardiovascular Disease; Visit Provider Internal Medicine Cardiovascular Disease
DX: I25.10 Atherosclerotic heart disease of native coronary artery without angina pectoris (principal); I48.91 Unspecified atrial fibrillation; Z79.01 Long term (current) use of anticoagulants; Z98.890 Other specified postprocedural states
CPT/HCPCS: 36415; 80061; 80076; 85610

== ENCOUNTER 2019-04-09 16:17 | Outpatient (RCR) | payer MEDICARE, SELFPAY ==
[2019-02-18 10:15] VITALS: BMI 25.8
[2019-04-09 17:09] LABS: Prothrombin Time Fingerstick 23.8 SEC (11.9-14.4)
== END 2019-04-09 17:00 | disposition home or self-care (01) ==
LOC: LAB 16:17
PROVIDERS: Family Provider Family Medicine; PCP Family Medicine; Referring Provider Internal Medicine Cardiovascular Disease; Visit Provider Internal Medicine Cardiovascular Disease
DX: I48.91 Unspecified atrial fibrillation (principal); Z79.01 Long term (current) use of anticoagulants; Z98.890 Other specified postprocedural states
CPT/HCPCS: 36416; 85610

== ENCOUNTER 2019-06-11 15:57 | Outpatient (RCR) | payer MEDICARE, SELFPAY ==
[2019-02-18 10:15] VITALS: BMI 25.8
[2019-06-11 16:25] LABS: Prothrombin Time Fingerstick 22.8 SEC (11.9-14.4)
== END 2019-06-11 18:00 | disposition home or self-care (01) ==
LOC: LAB 15:57
PROVIDERS: Family Provider Family Medicine; PCP Family Medicine; Referring Provider Internal Medicine Cardiovascular Disease; Visit Provider Internal Medicine Cardiovascular Disease
DX: I48.91 Unspecified atrial fibrillation (principal); Z79.01 Long term (current) use of anticoagulants; Z98.890 Other specified postprocedural states
CPT/HCPCS: 36416; 85610

== ENCOUNTER 2019-06-27 13:11 | Outpatient (RCR) | payer MEDICARE, SELFPAY ==
[2019-02-18 10:15] VITALS: BMI 25.8
[2019-06-27 14:33] LABS: International Normalized Ratio 1.9; Prothrombin Time (Protime)PT. 21.3 SECONDS (11.7-14.9)
[2019-06-27 15:10] LABS: Thyroid Stim Hormone (TSH) 2.44 uIU/mL (0.358-3.74)
== END 2019-06-27 18:00 | disposition home or self-care (01) ==
LOC: LAB 13:11
PROVIDERS: Family Provider Family Medicine; PCP Family Medicine; Referring Provider Internal Medicine Cardiovascular Disease; Visit Provider Internal Medicine Cardiovascular Disease
DX: I48.91 Unspecified atrial fibrillation (principal); Z79.01 Long term (current) use of anticoagulants; Z98.890 Other specified postprocedural states
CPT/HCPCS: 36415; 84436; 84443; 85610

== ENCOUNTER 2019-08-09 15:24 | Outpatient (RCR) | payer MEDICARE, SELFPAY ==
[2019-02-18 10:15] VITALS: BMI 25.8
[2019-08-11 18:26] LABS: Prothrombin Time Fingerstick 28.3 SEC (11.9-14.4)
== END 2019-08-09 18:00 | disposition home or self-care (01) ==
LOC: LAB 15:24
PROVIDERS: Family Provider Family Medicine; PCP Family Medicine; Referring Provider Internal Medicine Cardiovascular Disease; Visit Provider Internal Medicine Cardiovascular Disease
DX: I48.91 Unspecified atrial fibrillation (principal); Z79.01 Long term (current) use of anticoagulants
CPT/HCPCS: 36416; 85610

== ENCOUNTER → 2020-03-05 08:46 | Outpatient (CLI) | payer MEDICARE, SELFPAY ==
[2019-08-12 09:25] VITALS: BMI 25.7
[2020-03-05 10:06] LABS: International Normalized Ratio 2.2; Prothrombin Time (Protime)PT. 24.1 SECONDS (11.7-14.9)
[2020-03-05 10:48] LABS: AST(SGOT) 30 U/L (15-37); Alanine Aminotransfer ALT/SGPT 32 U/L (13-56); Albumin, Serum 4.2 g/dL (3.2-5.0); Alkaline Phosphatase 76 U/L (45-117); Bilirubin, Direct 0.21 mg/dL (0.00-0.30); Cholesterol 152 mg/dL (200); Globulin 3.1 g/dL (2.2-4.2); High Density Lipoprotein 56 mg/dL; Protein, Total 7.3 g/dL (6.4-8.2); Triglycerides 171 mg/dL; Very Low Density Lipoprotein 34 mg/dL (5-40)
== END ==
PROVIDERS: PCP Family Medicine; Referring Provider Internal Medicine Cardiovascular Disease; Visit Provider Internal Medicine Cardiovascular Disease
DX: I48.0 Paroxysmal atrial fibrillation (principal); I25.10 Atherosclerotic heart disease of native coronary artery without angina pectoris; Z79.01 Long term (current) use of anticoagulants
CPT/HCPCS: 36415; 80061; 80076; 85610

== ENCOUNTER 2020-04-22 13:45 | Emergency (ER) | payer MEDICARE, SELFPAY ==
[2019-08-12 09:25] VITALS: BMI 25.7
[2020-04-22 13:48] VITALS: BP 154/106; PULSE 146; RESP 17; TEMP 36.2; O2SAT 98; BMI 24.4
[2020-04-22 14:11] VITALS: PULSE 152
--- NOTE | 2020-04-22 14:15 | EKG12_ITS ---
Test Reason : PALPS Blood Pressure : / mmHG Vent. Rate : 153 BPM Atrial Rate : 133 BPM P-R Int : 000 ms QRS Dur : 104 ms QT Int : 288 ms P-R-T Axes : 000 073 -50 degrees QTc Int : 459 ms Supraventricular tachycardia with frequent Premature ventricular complexes Incomplete right bundle branch block Marked ST abnormality, possible inferior subendocardial injury Abnormal ECG Confirmed by TRACI FRANKEL, ARTIE ([id number]), videotape editor GLENNA PRO ([id number]) on 04/27/2020 2:21:58 PM Referred By: DAYANARA Confirmed By:ARTIE AVILES MD
--- NOTE | 2020-04-22 14:19 | ED.VIS.GEN ---
History of Present Illness Chief Complaint: Palpitations Informant: Patient, Family Narrative: 69-year-old female presents with generalized weakness and palpitations. 2017 she had open heart surgery for CABG and mitral valve repair. She states that after she was home she developed atrial fibrillation. She has been on Coumadin therapy. She has not had a reoccurrence to her knowledge of Jose G malloy. She has a defibrillator in place. She states that earlier today she was cleaning and just got fatigued and did not feel well. She took her blood pressure noted to be in the 90s systolically with heart rate around 150-160. - Past Medical History (1) Ischemic cardiomyopathy Status: Chronic (2) Essential hypertension Status: Chronic (3) Paroxysmal atrial fibrillation Status: Chronic (4) Atherosclerotic heart disease of [place] coronary artery without angina pectoris Status: Chronic (5) Hx of mitral valve repair Status: Chronic Comment: Mitral valve repair: utilizing #[facility] complete rigid annuloplasty ring at [facility] 04/2017 (6) Implantable cardioverter-defibrillator (ICD) in situ Status: Chronic (7) Sick sinus syndrome Status: Chronic (8) Systolic dysfunction Status: Chronic (9) Bilateral pleural effusion Status: Chronic (10) Long-term (current) use of anticoagulants, INR goal 2.0-3.0 Status: Chronic (11) HLD (hyperlipidemia) Status: Chronic Past Medical History - Allergies and Home Meds Allergies/Adverse Reactions: Allergies carvedilol [From Coreg] Adverse Reaction (Severe, Verified 04/22/20 13:48) fatigue metoprolol Adverse Reaction (Intermediate, Verified 04/22/20 13:48) skin rash Primary Care Physician: Kayla Chu MD [Primary Care Provider] - Prior records reviewed: Yes Surgical History: coronary bypass surgery, - Lives: Spouse/ Significant Other Smoking Status: Never smoker Drugs: None - Family History Paternal Family History: Family History (Last Reviewed 08/12/19 @ 09:47 by Jannie STUBBS PA) Mother CVA (cerebral vascular accident) Father Heart disease Family History: Reports: Heart Disease Maternal Family History: Family History (Last Reviewed 08/12/19 @ 09:47 by Jannie STUBBS PA) Mother CVA (cerebral vascular accident) Father Heart disease Family History: Reports: Stroke Review of Systems General: Reports: Malaise. Denies: Chills, Fever, Sweats Eyes: Denies: Visual changes - bilaterally, Diplopia ENT: Denies: Rhinorrhea, Sore throat Cardiovascular: Reports: Palpitations, Heart racing. Denies: Chest pain Respiratory: Denies: Dyspnea, Cough, Dyspnea on exertion Gastrointestinal: Denies: Abdominal pain, Nausea, Vomiting, Diarrhea, Melena, Hematochezia Genitourinary: Denies: Dysuria, Hematuria, Frequency Musculoskeletal: Denies: Back pain, Extremity Pain Skin: Denies: Rash, Wounds Neurological: Denies: Headache, Weakness, Numbness Physical Exam Vital Signs/Narrative: Vital Signs Temp Pulse Resp BP Pulse Ox 04/22/20 14:11 152 H 04/22/20 13:48 97.2 F L 146 H 17 154/106 H 98 Inital Vital Signs reviewed: Yes General: Well nourished, Well developed, No Acute Distress Head: Normocephalic, Atraumatic Eyes: Perrl, EOMI ENT: Moist mucous membranes, No rhinorrhea Neck: Supple, Nontender Cardiovascular: Regular rate, No murmurs, Tachycardia Respiratory: No distress, CTA bilaterally, Chest nontender Abdomen: Soft, Nontender, Nondistended, Normal bowel sounds Back: Nontender, Normal Inspection Extremities: Nontender, No edema Skin: Normal color, No rash Neurological: Alert, Oriented x3, Cranial nerves II-XII grossly intact, Normal Strength, Normal Sensation Psychological: Normal affect, Normal Mood Diagnostic/Tx/Re-eval Clinical Impression(s) from Imaging Studies Chest X-Ray 04/22/20 14:50 IMPRESSION: Status post mitral valve replacement. The lungs are clear. Electronically Signed: Boston Kiran, at 15:03 EDT , Service support , Laboratory Last Values WBC 12.2 K/mm3 (4.4-11.0) H 04/22/20 14:30 RBC 5.03 M/mm3 (4.2-5.4) 04/22/20 14:30 Hgb 15.4 g/dL (12.0-15.0) H 04/22/20 14:30 Hct 46.8 % (37-47) 04/22/20 14:30 MCV 93.0 fL (81-99) 04/22/20 14:30 MCH 30.6 pg (27.0-32.0) 04/22/20 14:30 MCHC 32.9 g/dL (32-36) 04/22/20 14:30 RDW Std Deviation 42.2 fl (35.1-43.9) 04/22/20 14:30 RDW Coeff of Regine 12.2 % (11.6-14.6) 04/22/20 14:30 Plt Count 255 K/mm3 (150-450) 04/22/20 14:30 MPV 9.9 fl (6.2-12.0) 04/22/20 14:30 Immature Gran % (Auto) 0.300 % (0.0-0.9) 04/22/20 14:30 Neut % (Auto) 72.5 % (47-70) H 04/22/20 14:30 Lymph % (Auto) 20.0 % (19-41) 04/22/20 14:30 Mellette % (Auto) 5.6 % (0-10) 04/22/20 14:30 Eos % (Auto) 1.0 % (0-5) 04/22/20 14:30 Baso % (Auto) 0.6 % (0-1) 04/22/20 14:30 Absolute Neuts (auto) 8.9 X10^3/uL (2.0-7.7) H 04/22/20 14:30 Absolute Lymphs (auto) 2.44 X10^3/uL (0.83-4.51) 04/22/20 14:30 Nucleated RBC % 0 % (0-5) 04/22/20 14:30 PT 16.5 SECONDS (11.7-14.9) H 04/22/20 14:30 INR 1.4 04/22/20 14:30 Sodium 135 mmol/L (136-145) L 04/22/20 14:30 Potassium 5.2 mmol/L (3.5-5.1) H 04/22/20 14:30 Chloride 104 mmol/L (98-107) 04/22/20 14:30 Carbon Dioxide 26.0 mmol/L (21.0-32.0) 04/22/20 14:30 Anion Gap 5 (5-15) 04/22/20 14:30 BUN 24 mg/dL (7-18) H 04/22/20 14:30 Creatinine 1.06 mg/dL (0.55-1.02) H 04/22/20 14:30 Estim Creat Clear Calc 48.71 ml/min 04/22/20 14:30 Est GFR (MDRD) Af Amer 66 mL/min (>60) 04/22/20 14:30 Est GFR (MDRD) Non-Af 55 mL/min (>60) L 04/22/20 14:30 BUN/Creatinine Ratio 22.6 RATIO (10-20) H 04/22/20 14:30 Glucose 111 mg/dL (74-106) H 04/22/20 14:30 Calcium 9.3 mg/dL (8.5-10.1) 04/22/20 14:30 Magnesium 2.4 mg/dL (1.6-2.6) 04/22/20 14:30 Troponin I 0.082 ng/mL (<0.045) H 04/22/20 14:30 - EKG Initial EKG Interpretation: Atrial Flutter - EKG shows a supraventricular tachycardia at a rate of 153 with PVCs. I suspect underlying atrial flutter. - Medical Decision Making After a dose of Cardizem the patient converted to a sinus bradycardia at a rate of 54. Patient's not on a beta-miguel or on Cardizem she states because of symptomatic bradycardia/sick sinus syndrome. Her labs are reviewed her troponin 0 0.08 which I think is most likely type II from the rate. She is remained in a sinus rhythm. INR subtherapeutic at 1.4 Sheldon have her double her dose for the next 3 days. Patient was instructed to follow-up with cardiology. ED Disposition - Plan for ED Patient: Disposition: Home or Assisted Living Diagnosis: Paroxysmal atrial fibrillation, Long-term (current) use of anticoagulants, INR goal 2.0-3.0, Subtherapeutic international normalized ratio (INR) Instructions: ED AFIB Referrals: Omar Sanchez MD [STAFF PHYSICIAN] - As soon as possible Additional Instructions: Tonight take your regular dose of Coumadin as you received an extra dose here in the department. night and Monday night please take double your normal dose. You need to have your INR rechecked next week.
[2020-04-22] MEDS: dilTIAZem 25 MG/5 ML Vial 20 MG IV BOLUS (14:36)
[2020-04-22 14:38] LABS: Absolute Lymphocyte Count 2.44 X10^3/uL (0.83-4.51); Absolute Neutrophil Count 8.9 X10^3/uL (2.0-7.7); Basophil# 0.07 X10^3/uL; Basophil% 0.6 % (0-1); Eosinophil# 0.12 X10^3/uL; Hematocrit 46.8 % (37-47); Hemoglobin 15.4 g/dL (12.0-15.0); Lymphocyte # 2.44 X10^3/ul (4.0); Mean Corp Hgb Conc 32.9 g/dL (32-36); Mean Corpuscular Hgb 30.6 pg (27.0-32.0); Mean Platelet Vol. 9.9 fl (6.2-12.0); Monocyte# 0.69 X10^3/uL; Monocyte% 5.6 % (0-10); NRBC Flagged by Analyzer 0 % (0-5); Neutrophil # 8.87 X10^3/uL (2.7-7.7); Neutrophil % 72.5 % (47-70); Platelet Count 255 K/mm3 (150-450); RBC Distribution Width CV 12.2 % (11.6-14.6); RBC Distribution Width SD 42.2 fl (35.1-43.9); Red Blood Count 5.03 M/mm3 (4.2-5.4); White Blood Count 12.2 K/mm3 (4.4-11.0)
[2020-04-22 14:47] LABS: International Normalized Ratio 1.4; Prothrombin Time (Protime)PT. 16.5 SECONDS (11.7-14.9)
--- NOTE | 2020-04-22 14:48 | EKG12_ITS ---
Test Reason : REPEAT Blood Pressure : / mmHG Vent. Rate : 054 BPM Atrial Rate : 054 BPM P-R Int : 194 ms QRS Dur : 100 ms QT Int : 420 ms P-R-T Axes : 033 052 038 degrees QTc Int : 398 ms Sinus bradycardia Possible Left atrial enlargement Borderline ECG Confirmed by TRACI FRANKEL, ARTIE ([id number]), film editor GLENNA PRO ([id number]) on 04/27/2020 2:15:50 PM Referred By: SHELLY Confirmed By:ARTIE AVILES MD
--- NOTE | 2020-04-22 14:50 | RAD_ITS ---
STUDY: X-RAY CHEST REASON FOR EXAM: Female, 69 years old. Palpitations and weakness. Hx of open heart 2017 and pacemaker 2018. TECHNIQUE: Single AP portable view of the chest. COMPARISON: Comparison is made with prior study dated 11/03/2017. FINDINGS: EKG electrodes are seen. Hyperinflation. There is no demonstrated pleural abnormality. Sternal cerclage wires are present from a prior sternotomy. Prior mitral valve replacement. A left-sided dual-chamber pacemaker is seen. Normal mediastinum and ruby. Normal visualized pulmonary arteries. Normal visualized aortic arch and descending thoracic aorta. Normal visualized thoracic spine. Normal visualized ribs, clavicles, and shoulders. There is no demonstrated abnormality of the visualized soft tissue structures of the upper abdomen. RAD/Chest 1 View (Portable) IMPRESSION: Status post mitral valve replacement. The lungs are clear. Electronically Signed: Boston Kiran, at 15:03 EDT , Service support ,
[2020-04-22 15:04] LABS: Anion Gap 5 (5-15); BUN 24 mg/dL (7-18); BUN/Creat Ratio 22.6 RATIO (10-20); Calcium,Total 9.3 mg/dL (8.5-10.1); Chloride 104 mmol/L (98-107); Creatinine, Serum 1.06 mg/dL (0.55-1.02); EST Glomerular Filtration Rate 55 mL/min (>60); Est Glom Filt Rate - Afr Amer 66 mL/min (>60); Estimated Creatinine Clearance 48.71 ml/min; Glucose 111 mg/dL (74-106); Magnesium 2.4 mg/dL (1.6-2.6); Potassium 5.2 mmol/L (3.5-5.1); Sodium Level 135 mmol/L (136-145)
[2020-04-22 15:15] VITALS: BP 134/65; PULSE 56; RESP 16; O2SAT 97
== END 2020-04-22 16:16 | disposition home or self-care (01) ==
PROVIDERS: Emergency Provider Emergency Medicine; PCP Family Medicine
DX: I48.0 Paroxysmal atrial fibrillation (principal); Z79.01 Long term (current) use of anticoagulants; R79.1 Abnormal coagulation profile; I25.10 Atherosclerotic heart disease of native coronary artery without angina pectoris; Z95.810 Presence of automatic (implantable) cardiac defibrillator; Z95.1 Presence of aortocoronary bypass graft; Z79.82 Long term (current) use of aspirin
CPT/HCPCS: 71045; 80048; 83735; 84484; 85025; 85610; 93005; 96374; 99285; J7050; A4216

== ENCOUNTER 2020-04-28 08:50 | Outpatient (RCR) | payer MEDICARE, SELFPAY ==
[2019-08-12 09:25] VITALS: BMI 25.7
[2020-04-28 09:00] LABS: Prothrombin Time Fingerstick 25.7 SEC (11.9-14.4)
== END 2020-04-28 18:00 | disposition home or self-care (01) ==
LOC: LAB 08:50
PROVIDERS: Family Provider Family Medicine; PCP Family Medicine; Referring Provider Internal Medicine Cardiovascular Disease; Visit Provider Internal Medicine Cardiovascular Disease
DX: I48.0 Paroxysmal atrial fibrillation (principal); Z79.01 Long term (current) use of anticoagulants
CPT/HCPCS: 36416; 85610

== ENCOUNTER 2020-08-31 12:20 | Outpatient (RCR) | payer MEDICARE, SELFPAY ==
[2020-04-28 09:25] VITALS: BMI 24.7
[2020-08-31 14:14] LABS: International Normalized Ratio 2.3; Prothrombin Time (Protime)PT. 24.4 SECONDS (11.7-14.9)
[2020-08-31 14:41] LABS: T4 Total, Thyroxin 7.3 ug/dL (4.8-13.9); Thyroid Stim Hormone (TSH) 2.26 uIU/mL (0.358-3.74)
== END 2020-08-31 18:00 ==
LOC: LAB 12:20
PROVIDERS: Family Provider Family Medicine; PCP Family Medicine; Referring Provider Internal Medicine Cardiovascular Disease; Visit Provider Internal Medicine Cardiovascular Disease
DX: I48.0 Paroxysmal atrial fibrillation (principal); Z79.01 Long term (current) use of anticoagulants
CPT/HCPCS: 36415; 84436; 84443; 85610

== ENCOUNTER → 2020-11-04 18:01 | Outpatient (CLI) | payer MEDICARE, SELFPAY ==
[2020-04-28 09:25] VITALS: BMI 24.7
== END ==
PROVIDERS: PCP Family Medicine; Referring Provider Family Medicine; Visit Provider Family Medicine
DX: Z20.822 Contact with and (suspected) exposure to COVID-19 (principal)
CPT/HCPCS: 87635; U0002

== ENCOUNTER 2021-03-02 13:56 | Outpatient (RCR) | payer MEDICARE, SELFPAY ==
[2020-04-28 09:25] VITALS: BMI 24.7
[2021-03-02 16:40] LABS: International Normalized Ratio 2.4; Prothrombin Time (Protime)PT. 25.2 SECONDS (11.7-14.9)
[2021-03-02 17:16] LABS: AST(SGOT) 27 U/L (15-37); Alanine Aminotransfer ALT/SGPT 39 U/L (13-56); Alkaline Phosphatase 83 U/L (45-117); Bilirubin, Direct 0.15 mg/dL (0.00-0.30); Cholesterol 162 mg/dL (200); Globulin 2.9 g/dL (2.2-4.2); High Density Lipoprotein 48 mg/dL; Protein, Total 6.9 g/dL (6.4-8.2); Triglycerides 434 mg/dL
== END 2021-03-02 18:00 | disposition home or self-care (01) ==
LOC: LAB 13:56
PROVIDERS: Family Provider Family Medicine; PCP Family Medicine; Referring Provider Internal Medicine Cardiovascular Disease; Visit Provider Internal Medicine Cardiovascular Disease
DX: I48.0 Paroxysmal atrial fibrillation (principal); E78.00 Pure hypercholesterolemia, unspecified; Z79.01 Long term (current) use of anticoagulants
CPT/HCPCS: 36415; 80061; 80076; 85610

== ENCOUNTER → 2021-03-10 08:23 | Outpatient (CLI) | payer MEDICARE, SELFPAY ==
[2021-03-08 11:04] VITALS: BMI 24.8
[2021-03-10 09:54] LABS: AST(SGOT) 27 U/L (15-37); Alanine Aminotransfer ALT/SGPT 38 U/L (13-56); Albumin, Serum 4.1 g/dL (3.2-5.0); Alkaline Phosphatase 69 U/L (45-117); Anion Gap 6 (5-15); BUN 21 mg/dL (7-18); BUN/Creat Ratio 23.9 RATIO (10-20); Bilirubin, Direct 0.25 mg/dL (0.00-0.30); Calcium,Total 8.9 mg/dL (8.5-10.1); Chloride 104 mmol/L (98-107); Cholesterol 156 mg/dL (200); Creatinine, Serum 0.88 mg/dL (0.55-1.02); EST Glomerular Filtration Rate 68 mL/min (>60); Est Glom Filt Rate - Afr Amer 82 mL/min (>60); Globulin 3.4 g/dL (2.2-4.2); Glucose 97 mg/dL (74-106); High Density Lipoprotein 52 mg/dL; Protein, Total 7.5 g/dL (6.4-8.2); Sodium Level 140 mmol/L (136-145); Triglycerides 169 mg/dL; Very Low Density Lipoprotein 34 mg/dL (5-40)
== END ==
PROVIDERS: PCP Family Medicine; Referring Provider Internal Medicine Cardiovascular Disease; Visit Provider Internal Medicine Cardiovascular Disease
DX: I25.5 Ischemic cardiomyopathy (principal); I10 Essential (primary) hypertension; I48.0 Paroxysmal atrial fibrillation; I25.10 Atherosclerotic heart disease of native coronary artery without angina pectoris; I49.5 Sick sinus syndrome; E78.00 Pure hypercholesterolemia, unspecified; Z98.890 Other specified postprocedural states; Z95.810 Presence of automatic (implantable) cardiac defibrillator; Z95.1 Presence of aortocoronary bypass graft
CPT/HCPCS: 36415; 80048; 80061; 80076

== ENCOUNTER → 2021-03-16 12:34 | Outpatient (CLI) | payer MEDICARE, SELFPAY ==
[2021-03-08 11:04] VITALS: BMI 24.8
--- NOTE | 2021-03-16 12:37 | ECHOD_ITS ---
Reason For Study: valve repair - eval. Procedure This was a 2D Doppler, Color Flow transthoracic echocardiogram. The study was technically difficult. Parasternals views are best obtained in supine position. Exam performed in department. Left Ventricle Normal LV size. Left ventricular systolic function is normal. The estimated ejection fraction is 55 %. Diastolic function is indeterminate. No regional wall motion abnormalities noted. Right Ventricle Normal RV size. ICD or pacer leads identified within the right ventricle. Normal systolic function. Atria The left atrium is mildly enlarged. Normal right atrium. ICD or pacer leads identified within the right atrium. No doppler evidence for ASD. Mitral Valve Mild diffuse mitral valve thickening. An annuloplasty ring is noted in the mitral position. MIld (1+) transvalvular insufficiency of the mitral valve. Tricuspid Valve Normal tricuspid valve. Mild tricuspid valve insufficiency. Right ventricular systolic pressure estimated to be 25 mmHg. Aortic Valve Trisinus/trileaflet aortic valve. Mild diffuse aortic valve thickening. Mild focal aortic valve calcification. Pulmonic Valve The pulmonic valve is not well visualized. Trivial pulmonic valve insufficiency. Great Vessels Normal sized aortic root. Pericardium/Pleural No pericardial effusion. MMode/2D Measurements & Calculations LVIDd: 5.0 cm IVSd: 1.2 cm Ao root diam: 2.7 cm LVIDs: 3.6 cm LVPWd: 1.1 cm FS: 29.6 % LAV(MOD-bp): 56.6 ml EDV(MOD-sp4): 71.3 ml EDV(MOD-sp2): 77.8 ml LAV(MOD-bp) Indexed: 30.9 ml/m2 ESV(MOD-sp4): 28.5 ml ESV(MOD-sp2): 30.2 ml LAV(MOD-sp2): 54.4 ml EF(MOD-sp4): 60.1 % EF(MOD-sp2): 61.1 % LAV(MOD-sp4): 57.8 ml SV(MOD-sp4): 42.9 ml SV(MOD-sp2): 47.5 ml LA A4 area: 18.5 cm2 LA dimension(2D): 4.2 cm RA A4 area: 15.7 cm2 Time Measurements MV dec time: 0.28 sec Doppler Measurements & Calculations MV E max armen: 84.8 cm/sec Lat Peak E' Armen: 5.3 cm/sec Med Peak E' Armen: 5.5 cm/sec MV A max armen: 108.8 cm/sec E/E' lat: 16.0 E/E' med: 15.5 MV E/A: 0.78 MV V2 max: 133.3 cm/sec Ao V2 max: 96.7 cm/sec LV V1 max: 71.0 cm/sec MV max P.1 mmHg Ao max P.7 mmHg LV V1 max P.0 mmHg MV V2 mean: 75.9 cm/sec MV mean P.7 mmHg MV V2 VTI: 39.9 cm PA V2 max: 92.0 cm/sec TR max armen: 233.1 cm/sec TR max P.2 mmHg ECHO/Echo Complete Interpretation Summary The study was technically difficult. Left ventricular systolic function is normal. The estimated ejection fraction is 55 %. The left atrium is mildly enlarged. An annuloplasty ring is noted in the mitral position. Mild diffuse mitral valve thickening. MIld (1+) transvalvular insufficiency of the mitral valve. Mild tricuspid valve insufficiency. Mild diffuse aortic valve thickening. Mild focal aortic valve calcification. Trivial pulmonic valve insufficiency. Right ventricular systolic pressure estimated to be 25 mmHg. Diastolic function is indeterminate. ICD or pacer leads identified within the right atrium ICD or pacer leads identified within the right ventricle. Ordering Physician: Omar Sanchez Referring Physician: Omar Sanchez Performed By: Jenni Carrera, LILIYA, RVT
== END ==
PROVIDERS: PCP Family Medicine; Referring Provider Internal Medicine Cardiovascular Disease; Visit Provider Internal Medicine Cardiovascular Disease
DX: I25.10 Atherosclerotic heart disease of native coronary artery without angina pectoris (principal); I25.5 Ischemic cardiomyopathy; I10 Essential (primary) hypertension; I48.0 Paroxysmal atrial fibrillation; I49.5 Sick sinus syndrome; E78.00 Pure hypercholesterolemia, unspecified; Z98.890 Other specified postprocedural states; Z95.810 Presence of automatic (implantable) cardiac defibrillator; Z95.1 Presence of aortocoronary bypass graft
CPT/HCPCS: 93306

== ENCOUNTER 2021-06-02 13:53 | Outpatient (RCR) | payer MEDICARE, SELFPAY ==
[2021-03-23 20:05] VITALS: BMI 24.7
[2021-06-03 09:16] LABS: INR Fingerstick 2.5; Prothrombin Time Fingerstick 27.6 SEC (11.9-14.4)
== END 2021-06-22 18:00 | disposition home or self-care (01) ==
LOC: LAB 13:53
PROVIDERS: Family Provider Family Medicine; PCP Family Medicine; Referring Provider Internal Medicine Cardiovascular Disease; Visit Provider Internal Medicine Cardiovascular Disease
DX: I48.0 Paroxysmal atrial fibrillation (principal); Z79.01 Long term (current) use of anticoagulants
CPT/HCPCS: 36416; 85610

== ENCOUNTER 2021-09-02 09:21 | Outpatient (RCR) | payer MEDICARE, SELFPAY ==
[2021-06-23 02:17] VITALS: BMI 24.7
[2021-09-02 09:35] LABS: INR Fingerstick 2.6; Prothrombin Time Fingerstick 29.9 SEC (11.9-14.4)
== END 2021-09-02 18:00 | disposition home or self-care (01) ==
LOC: LAB 09:21
PROVIDERS: Family Provider Family Medicine; PCP Family Medicine; Referring Provider Internal Medicine Cardiovascular Disease; Visit Provider Internal Medicine Cardiovascular Disease
DX: I48.0 Paroxysmal atrial fibrillation (principal); Z79.01 Long term (current) use of anticoagulants
CPT/HCPCS: 36416; 85610

== ENCOUNTER 2021-11-15 11:48 | Outpatient (RCR) | payer MEDICARE, SELFPAY ==
[2021-09-21 09:36] VITALS: BMI 24.7
[2021-11-15 13:08] LABS: International Normalized Ratio 2.9; Prothrombin Time (Protime)PT. 29.9 SECONDS (11.7-14.9)
[2021-11-15 13:29] LABS: T4 Total, Thyroxin 12.1 ug/dL (4.8-13.9); Thyroid Stim Hormone (TSH) 1.21 uIU/mL (0.358-3.74)
== END 2021-11-15 18:00 | disposition home or self-care (01) ==
LOC: LAB 11:48
PROVIDERS: Family Provider Family Medicine; PCP Family Medicine; Referring Provider Internal Medicine Cardiovascular Disease; Visit Provider Internal Medicine Cardiovascular Disease
DX: I48.0 Paroxysmal atrial fibrillation (principal); Z79.01 Long term (current) use of anticoagulants
CPT/HCPCS: 36415; 84436; 84443; 85610

== ENCOUNTER → 2021-12-07 | Outpatient (CLI) | payer MEDICARE, SELFPAY ==
--- NOTE | 2021-12-07 10:03 | BI_ITS ---
MAMMOGRAPHY - BILATERAL SCREENING REASON FOR EXAM: Female, 71 years old. Routine annual screening examination. PERTINENT HISTORY: Non-contributory. TECHNIQUE: Digital bilateral breast odalis (3D mammographic acquisition) in the CC and MLO projections. 2-D mediolateral oblique (MLO) and craniocaudad (CC) views of both breasts were obtained. CAD: Full Field Digital Mammography with Computer Added Detection was performed. COMPARISON: None. Baseline examination. FINDINGS: Breast Composition: There are scattered areas of fibroglandular density. There are no dominant masses or suspicious calcifications. A pacemaker battery pack is seen in the left axillary region. No other significant abnormalities are identified. BI/SCRN MAMM (CAD)W/ODALIS BILAT IMPRESSION: Negative screening mammogram. Yearly followup mammogram recommended. (A) ASSESSMENT CATEGORY: BIRADS Category 2: Benign. A letter regarding these results will be sent to the patient by the facility within 30 days. Approximately 10% of breast cancers are not detected by mammography. A normal mammogram should not delay biopsy of a clinically suspicious abnormality. [id number] Electronically Signed: Boston Kiran MD at 11:13 EDT ,
== END | disposition home or self-care (01) ==
LOC: OPBI 10:01
PROVIDERS: PCP Family Medicine; Visit Provider Family Medicine
DX: Z12.31 Encounter for screening mammogram for malignant neoplasm of breast (principal)
CPT/HCPCS: 77063; 77067

== ENCOUNTER 2022-03-09 09:30 | Outpatient (RCR) | payer MEDICARE, SELFPAY ==
[2021-11-21 03:19] VITALS: BMI 24.7
[2022-03-09 10:04] LABS: International Normalized Ratio 2.4; Prothrombin Time (Protime)PT. 25.9 SECONDS (11.7-14.9)
== END 2022-03-09 18:00 | disposition home or self-care (01) ==
LOC: LAB 09:30
PROVIDERS: Family Provider Family Medicine; PCP Family Medicine; Referring Provider Internal Medicine Cardiovascular Disease; Visit Provider Internal Medicine Cardiovascular Disease
DX: I48.0 Paroxysmal atrial fibrillation (principal); Z79.01 Long term (current) use of anticoagulants; E78.5 Hyperlipidemia, unspecified
CPT/HCPCS: 36415; 80061; 80076; 85610

== ENCOUNTER → 2022-03-09 | Outpatient (CLI) | payer MEDICARE, SELFPAY ==
[2022-03-09 10:29] LABS: AST(SGOT) 28 U/L (15-37); Alanine Aminotransfer ALT/SGPT 33 U/L (13-56); Albumin, Serum 3.7 g/dL (3.2-5.0); Alkaline Phosphatase 74 U/L (45-117); Bilirubin, Direct 0.26 mg/dL (0.00-0.30); Cholesterol 123 mg/dL (200); High Density Lipoprotein 48 mg/dL; Protein, Total 6.7 g/dL (6.4-8.2); Triglycerides 148 mg/dL; Very Low Density Lipoprotein 30 mg/dL (5-40)
== END | disposition home or self-care (01) ==
LOC: LAB 09:29
PROVIDERS: PCP Family Medicine; Visit Provider Nurse Practitioner Gerontology
DX: E78.5 Hyperlipidemia, unspecified (principal)
CPT/HCPCS: 36415; 80061; 80076

== ENCOUNTER 2022-08-25 12:17 | Outpatient (RCR) | payer MEDICARE, SELFPAY ==
[2022-03-23 22:50] VITALS: BMI 24.7
[2022-08-25 12:31] LABS: INR Fingerstick 2.2; Prothrombin Time Fingerstick 26.2 SEC (11.7-14.9)
== END 2022-08-25 18:00 | disposition home or self-care (01) ==
LOC: LAB 12:17
PROVIDERS: Family Provider Family Medicine; PCP Family Medicine; Referring Provider Internal Medicine Cardiovascular Disease; Visit Provider Internal Medicine Cardiovascular Disease
DX: I48.0 Paroxysmal atrial fibrillation (principal); Z79.01 Long term (current) use of anticoagulants
CPT/HCPCS: 36416; 85610

== ENCOUNTER 2022-10-31 09:35 | Outpatient (RCR) | payer MEDICARE, SELFPAY ==
[2022-09-20 19:59] VITALS: BMI 24.7
[2022-10-25 09:51] LABS: Absolute Neutrophil Count 4.5 X10^3/uL (2.0-7.7); Basophil# 0.05 X10^3/uL; Basophil% 0.7 % (0-1); Eosinophils% 1.4 % (0-5); Hematocrit 42.4 % (37-47); Hemoglobin 13.7 g/dL (12.0-15.0); Lymphocyte % 29.2 % (19-41); Mean Corp Hgb Conc 32.3 g/dL (32-36); Mean Corpuscular Hgb 30.4 pg (27.0-32.0); Mean Corpuscular Volume 94.2 fL (81-99); Mean Platelet Vol. 9.7 fl (6.2-12.0); Monocyte# 0.44 X10^3/uL; Monocyte% 6.1 % (0-10); NRBC Flagged by Analyzer 0 % (0-5); Neutrophil # 4.48 X10^3/uL (2.7-7.7); Neutrophil % 62.3 % (47-70); Platelet Count 202 K/mm3 (150-450); RBC Distribution Width CV 12.7 % (11.6-14.6); RBC Distribution Width SD 43.8 fl (35.1-43.9); White Blood Count 7.2 K/mm3 (4.4-11.0)
[2022-10-25 10:01] LABS: International Normalized Ratio 1.6; Prothrombin Time (Protime)PT. 18.8 SECONDS (11.7-14.9)
[2022-10-25 10:35] LABS: AST(SGOT) 33 U/L (15-37); Alanine Aminotransfer ALT/SGPT 34 U/L (13-56); Albumin, Serum 3.8 g/dL (3.2-5.0); Alkaline Phosphatase 86 U/L (45-117); Anion Gap 2 (5-15); BUN 21 mg/dL (7-18); BUN/Creat Ratio 21.4 RATIO (10-20); Bilirubin, Direct 0.22 mg/dL (0.00-0.30); Calcium,Total 8.9 mg/dL (8.5-10.1); Chloride 105 mmol/L (98-107); Cholesterol 139 mg/dL (200); Creatinine, Serum 0.98 mg/dL (0.55-1.02); EST Glomerular Filtration Rate 59 mL/min (>60); Est Glom Filt Rate - Afr Amer 72 mL/min (>60); Ferritin 81 ng/mL (8-252); Globulin 2.9 g/dL (2.2-4.2); Glucose 106 mg/dL (74-106); High Density Lipoprotein 52 mg/dL; Potassium 4.3 mmol/L (3.5-5.1); Protein, Total 6.7 g/dL (6.4-8.2); Sodium Level 136 mmol/L (136-145); T4 Total, Thyroxin 7.5 ug/dL (4.8-13.9); Thyroid Stim Hormone (TSH) 1.93 uIU/mL (0.358-3.74); Triglycerides 150 mg/dL; Very Low Density Lipoprotein 30 mg/dL (5-40)
[2022-10-31 09:51] LABS: INR Fingerstick 2.6; Prothrombin Time Fingerstick 27.8 SEC (11.7-14.9)
== END 2022-11-20 01:12 | disposition home or self-care (01) ==
LOC: LAB 09:35
PROVIDERS: Family Provider Family Medicine; PCP Family Medicine; Referring Provider Internal Medicine Cardiovascular Disease; Visit Provider Internal Medicine Cardiovascular Disease
DX: I48.0 Paroxysmal atrial fibrillation (principal); Z79.01 Long term (current) use of anticoagulants; I42.9 Cardiomyopathy, unspecified; D75.1 Secondary polycythemia; E03.9 Hypothyroidism, unspecified
CPT/HCPCS: 36415; 36416; 80048; 80061; 80076; 82728; 84436; 84443; 85025; 85610

== ENCOUNTER 2022-12-08 15:38 | Outpatient (RCR) | payer MEDICARE, SELFPAY ==
[2022-11-20 01:12] VITALS: BMI 24.7
[2022-12-08 15:45] LABS: INR Fingerstick 2.9; Prothrombin Time Fingerstick 30.9 SEC (11.7-14.9)
== END 2022-12-21 18:00 | disposition home or self-care (01) ==
LOC: LAB 15:38
PROVIDERS: Family Provider Family Medicine; PCP Family Medicine; Referring Provider Internal Medicine Cardiovascular Disease; Visit Provider Internal Medicine Cardiovascular Disease
DX: I48.0 Paroxysmal atrial fibrillation (principal); Z79.01 Long term (current) use of anticoagulants
CPT/HCPCS: 36416; 85610

== ENCOUNTER → 2022-12-08 | Outpatient (CLI) | payer MEDICARE, SELFPAY ==
--- NOTE | 2022-12-08 15:09 | BI_ITS ---
MAMMOGRAPHY - BILATERAL SCREENING REASON FOR EXAM: Female, 72 years old. Routine annual screening examination. PERTINENT HISTORY: Non-contributory. TECHNIQUE: Digital bilateral breast odalis (3D mammographic acquisition) in the CC and MLO projections. 2-D mediolateral oblique (MLO) and craniocaudad (CC) views of both breasts were obtained. CAD: Full Field Digital Mammography with Computer Added Detection was performed. COMPARISON: Comparison is made with prior study December 07, 2021. FINDINGS: Breast Composition: There are scattered areas of fibroglandular density. Asymmetry of soft tissue in the lateral deep portion of the left breast as seen on the craniocaudad view. The patient will be recalled for additional views including exaggerated left craniocaudad view. A battery pack of a pacemaker is once again seen in the left axillary region. No other significant abnormalities are identified. BI/SCRN MAMM (CAD)W/ODALIS BILAT IMPRESSION: Asymmetrical density in the deep lateral aspect of the left breast as seen on the craniocaudad view. The patient will be recalled for additional views including an exaggerated left craniocaudad view. ASSESSMENT CATEGORY: BIRADS Category 0: Incomplete. Need additional imaging evaluation. A letter regarding these results will be sent to the patient by the facility within 30 days. Approximately 10% of breast cancers are not detected by mammography. A normal mammogram should not delay biopsy of a clinically suspicious abnormality. [id number] Electronically Signed: Boston Kiran MD at 8:51 EDT ,
--- NOTE | 2022-12-08 15:12 | BD_ITS ---
STUDY: DUAL ENERGY X-RAY ABSORPTIOMETRY / DXA REASON FOR EXAM: Female, 72 years old. V76.12ScreeningBONE DENSITY REASON FOR EXAM TECHNIQUE: Bone Mineral Density (BMD) measurements of lumbar spine and bilateral hips were obtained. COMPARISON: None. FINDINGS: Lumbar Spine (L1-L4): g/cm2 (0.836) / T-score (-1.9) / Z-score (0.3) Findings are suggestive of osteopenia with a moderate fracture risk. Left Femur Total: g/cm2 (0.774) / T-score (-1.4) / Z-score (0.2) Left Femoral Neck: g/cm2 (0.598) / T-score (-2.3) / Z-score (-0.3) Right Femur Total: g/cm2 (0.806) / T-score (-1.1) / Z-score (0.5) Right Femoral Neck: g/cm2 (0.669) / T-score (-1.6) / Z-score (0.3) BD/Dexa Bone Density Study IMPRESSION: The patient is considered osteopenic as outlined below according to World Marcus Organization (WHO) criteria with a high fracture risk. Reference Information: The T-score is the number of standard deviations above or below the standard which is normal for young adults at their peak bone mineral density. The World Health Organization (WHO) interprets the T-scores as follows: Above -1 Normal bone density Between -1 and -2.5 Osteopenia Equal to / or below -2.5 Osteoporosis As a practical clinical guideline, osteopenia may be graded as follows: Mild -1 through -1.5 Moderate -1.6 through -2.0 Severe -2.1 through -2.4 The Z-score is the number of standard deviations above or below age-matched controls. A Z-score of less than -1.5 would be considered abnormal. References: 1. NIH Osteoporosis and Related Bone Diseases www osteo.org 2. International Society for Clinical Densitometry www iscd.org 3. National Osteoporosis Foundation www nof.org Electronically Signed: Boston Kiran MD at 14:14 EDT ,
== END | disposition home or self-care (01) ==
LOC: OPBD 15:08
PROVIDERS: PCP Family Medicine; Referring Provider Family Medicine; Visit Provider Family Medicine
DX: Z78.0 Asymptomatic menopausal state (principal); I48.0 Paroxysmal atrial fibrillation; Z12.31 Encounter for screening mammogram for malignant neoplasm of breast; Z79.01 Long term (current) use of anticoagulants
CPT/HCPCS: 36416; 77063; 77067; 77080; 85610

== ENCOUNTER → 2022-12-15 | Outpatient (CLI) | payer MEDICARE, SELFPAY ==
--- NOTE | 2022-12-15 08:56 | BI_ITS ---
MAMMOGRAPHY - UNILATERAL DIAGNOSTIC: LEFT BREAST REASON FOR EXAM: Female, 72 years old. Follow-up for abnormality seen on left breast screening mammogram. PERTINENT HISTORY: Non-contributory. TECHNIQUE: Digital unilateral breast kalnia (3D mammographic acquisition) in the CC and MLO projections. 2-D mediolateral oblique (MLO) and craniocaudad (CC) views of both breasts were obtained. CAD: Full Field Digital Mammography with Computer Added Detection was performed. COMPARISON: Screening mammogram from 12/08/2022, 12/07/2021 FINDINGS: Breast Composition: There are scattered areas of fibroglandular density. The posterior aspect of the left breast is better included in the field of view on this examination. There is normal fibroglandular tissue with no suspicious masses or calcifications. There is a pacemaker within the left axilla somewhat obscuring assessment of the left axillary soft tissues. BI/DIAG MAMM W/CAD, UNILAT IMPRESSION: Negative unilateral diagnostic mammogram. Return to annual yearly followup mammogram recommended. (A) ASSESSMENT CATEGORY: BIRADS Category 1: Negative. A letter regarding these results will be sent to the patient by the facility within 30 days. Approximately 10% of breast cancers are not detected by mammography. A normal mammogram should not delay biopsy of a clinically suspicious abnormality. Electronically Signed: Luis Fernández DO at 11:51 EDT ,
== END | disposition home or self-care (01) ==
LOC: OPBI 08:54
PROVIDERS: PCP Family Medicine; Referring Provider Family Medicine; Visit Provider Family Medicine
DX: R92.8 Other abnormal and inconclusive findings on diagnostic imaging of breast (principal)
CPT/HCPCS: 77061; 77065; G0279

== ENCOUNTER 2023-02-06 10:26 | Outpatient (RCR) | payer MEDICARE, SELFPAY ==
[2022-12-22 08:42] VITALS: BMI 24.7
[2023-02-06 10:37] LABS: INR Fingerstick 2.1; Prothrombin Time Fingerstick 23.5 SEC (11.7-14.9)
== END 2023-02-20 18:00 | disposition home or self-care (01) ==
LOC: LAB 10:26
PROVIDERS: Family Provider Family Medicine; PCP Family Medicine; Referring Provider Internal Medicine Cardiovascular Disease; Visit Provider Internal Medicine Cardiovascular Disease
DX: I48.0 Paroxysmal atrial fibrillation (principal); Z79.01 Long term (current) use of anticoagulants
CPT/HCPCS: 36416; 85610

== ENCOUNTER 2023-03-31 11:00 | Outpatient (RCR) | payer MEDICARE, SELFPAY ==
[2023-02-21 00:30] VITALS: BMI 24.7
[2023-03-31 11:08] LABS: INR Fingerstick 2.5
== END 2023-03-31 18:00 | disposition home or self-care (01) ==
LOC: LAB 11:00
PROVIDERS: Family Provider Family Medicine; PCP Family Medicine; Referring Provider Internal Medicine Cardiovascular Disease; Visit Provider Internal Medicine Cardiovascular Disease
DX: I48.0 Paroxysmal atrial fibrillation (principal); Z79.01 Long term (current) use of anticoagulants
CPT/HCPCS: 36416; 85610

== ENCOUNTER 2023-06-07 11:43 | Outpatient (RCR) | payer MEDICARE, SELFPAY ==
[2023-04-23 01:59] VITALS: BMI 24.7
[2023-06-07 15:38] LABS: INR Fingerstick 1.5; Prothrombin Time Fingerstick 16.8 SEC (11.7-14.9)
== END 2023-06-22 18:00 | disposition home or self-care (01) ==
LOC: LAB 11:43
PROVIDERS: Family Provider Family Medicine; PCP Family Medicine; Referring Provider Nurse Practitioner Gerontology; Visit Provider Nurse Practitioner Gerontology
DX: I48.0 Paroxysmal atrial fibrillation (principal); Z79.01 Long term (current) use of anticoagulants
CPT/HCPCS: 36416; 85610

== ENCOUNTER 2023-07-12 13:25 | Outpatient (RCR) | payer MEDICARE, SELFPAY ==
[2023-06-23 03:28] VITALS: BMI 24.7
[2023-06-23 11:56] LABS: INR Fingerstick 3.2; Prothrombin Time Fingerstick 34.4 SEC (11.7-14.9)
[2023-07-10 10:37] LABS: Prothrombin Time (Protime)PT. 47.7 SECONDS (11.7-14.9)
[2023-07-10 10:52] LABS: AST(SGOT) 40 U/L (15-37); Alanine Aminotransfer ALT/SGPT 40 U/L (13-56); Albumin, Serum 3.7 g/dL (3.2-5.0); Alkaline Phosphatase 75 U/L (45-117); Bilirubin, Direct 0.22 mg/dL (0.00-0.30); Cholesterol 113 mg/dL (200); Globulin 2.9 g/dL (2.2-4.2); High Density Lipoprotein 53 mg/dL; Protein, Total 6.6 g/dL (6.4-8.2); Triglycerides 161 mg/dL; Very Low Density Lipoprotein 32 mg/dL (5-40)
[2023-07-10 10:55] LABS: International Normalized Ratio 5.1
[2023-07-12 13:30] LABS: INR Fingerstick 1.8; Prothrombin Time Fingerstick 19.5 SEC (11.7-14.9)
== END 2023-07-23 18:00 | disposition home or self-care (01) ==
LOC: LAB 13:25
PROVIDERS: Physician Assistant Medical; Family Provider Family Medicine; PCP Family Medicine; Referring Provider Nurse Practitioner Gerontology; Visit Provider Nurse Practitioner Gerontology
DX: I48.0 Paroxysmal atrial fibrillation (principal); Z79.01 Long term (current) use of anticoagulants; E78.00 Pure hypercholesterolemia, unspecified; I25.10 Atherosclerotic heart disease of native coronary artery without angina pectoris
CPT/HCPCS: 36415; 36416; 80061; 80076; 85610

== ENCOUNTER 2023-07-28 14:15 | Outpatient (RCR) | payer MEDICARE, SELFPAY ==
[2023-07-23 20:36] VITALS: BMI 24.7
[2023-07-31 14:26] LABS: INR Fingerstick 2.8; Prothrombin Time Fingerstick 29.8 SEC (11.7-14.9)
== END 2023-07-28 18:00 | disposition home or self-care (01) ==
LOC: LAB 14:15
PROVIDERS: Family Provider Family Medicine; PCP Family Medicine; Referring Provider Nurse Practitioner Gerontology; Visit Provider Nurse Practitioner Gerontology
DX: I48.0 Paroxysmal atrial fibrillation (principal); Z79.01 Long term (current) use of anticoagulants
CPT/HCPCS: 36416; 85610

== ENCOUNTER → 2023-08-31 | Outpatient (CLI) | payer MEDICARE, SELFPAY ==
--- NOTE | 2023-08-31 09:48 | ECHOD_ITS ---
Reason For Study: murmur Procedure This was a 2D Doppler, Color Flow transthoracic echocardiogram. The study was technically difficult. Exam performed in department. Left Ventricle Normal size and thickness. The left ventricular ejection fraction is 50 %. Diastolic function is indeterminate. Right Ventricle ICD or pacer leads identified within the right ventricle. Atria The left atrium is severely enlarged. The right atrium is not well visualized. Mitral Valve Mitral valve ring. Mild to moderate mitral valve regurgitation. Tricuspid Valve Mild tricuspid valve insufficiency. Normal pulmonary artery pressure. Aortic Valve Trisinus/trileaflet aortic valve. Pulmonic Valve The pulmonic valve is not well visualized. Great Vessels Normal sized aortic root. Pericardium/Pleural No pericardial effusion. MMode/2D Measurements & Calculations LVIDd: 5.2 cm IVSd: 1.1 cm Ao root diam: 3.2 cm LVIDs: 4.0 cm LVPWd: 1.1 cm RVDd: 3.1 cm FS: 23.3 % LAV(MOD-bp): 77.2 ml LVAd ap4: 26.7 cm2 LVAd ap2: 22.7 cm2 LAV(MOD-bp) Indexed: 42.0 ml/m2 LVLd ap4: 7.1 cm LVLd ap2: 7.3 cm LAV(MOD-sp2): 77.9 ml EDV(MOD-sp4): 88.8 ml EDV(MOD-sp2): 60.9 ml LAV(MOD-sp4): 76.9 ml EDV(sp4-el): 85.3 ml EDV(sp2-el): 60.1 ml LVAs ap4: 15.7 cm2 LVAs ap2: 13.3 cm2 LVLs ap4: 6.2 cm LVLs ap2: 6.3 cm ESV(MOD-sp4): 34.7 ml ESV(MOD-sp2): 25.9 ml ESV(sp4-el): 33.8 ml ESV(sp2-el): 23.7 ml EF(MOD-sp4): 60.9 % EF(MOD-sp2): 57.4 % EF(sp4-el): 60.4 % SV(MOD-sp4): 54.0 ml SV(MOD-sp2): 35.0 ml SV(sp4-el): 51.5 ml LA dimension(2D): 4.2 cm LA A4 area: 22.3 cm2 RA A4 area: 15.1 cm2 TAPSE: 1.6 cm Time Measurements MV dec time: 0.17 sec Doppler Measurements & Calculations MV E max armen: 82.2 cm/sec Lat Peak E' Armen: 6.7 cm/sec Med Peak E' Armen: 6.2 cm/sec MV A max armen: 98.5 cm/sec E/E' lat: 12.2 E/E' med: 13.3 MV E/A: 0.83 MV V2 max: 125.1 cm/sec MV dec slope: 490.3 cm/sec2 Ao V2 max: 98.7 cm/sec MV max P.3 mmHg Ao max P.9 mmHg MV V2 mean: 77.2 cm/sec Ao V2 mean: 72.1 cm/sec MV mean P.7 mmHg Ao mean P.2 mmHg MV V2 VTI: 31.8 cm Ao V2 VTI: 20.9 cm AV (velocity ratio): 0.73 LV V1 max: 71.2 cm/sec MR max armen: 669.7 cm/sec PA V2 max: 101.9 cm/sec LV V1 max P.0 mmHg MR max P.4 mmHg PA V2 mean: 65.2 cm/sec LV V1 mean P.2 mmHg MR mean armen: 575.8 cm/sec LV V1 mean: 53.4 cm/sec MR mean P.0 mmHg LV V1 VTI: 15.2 cm MR VTI: 230.1 cm TR max armen: 245.1 cm/sec TR max P.0 mmHg ECHO/Echo Complete Interpretation Summary The study was technically difficult. Suboptimal apical and subcostal images. The left ventricular ejection fraction is 50 %. Diastolic function is indeterminate. The left atrium is severely enlarged. Mitral valve ring. Mild to moderate mitral valve regurgitation Mild tricuspid valve regurgitation Ordering Physician: Jannie Saunders Referring Physician: Kayla Chu Performed By: Jenni Carrera RDCS, RVT
== END | disposition home or self-care (01) ==
LOC: CVS 09:48
PROVIDERS: PCP Family Medicine; Referring Provider Physician Assistant Medical; Visit Provider Physician Assistant Medical
DX: I31.39 Other pericardial effusion (noninflammatory) (principal); Z98.890 Other specified postprocedural states
CPT/HCPCS: 93306

== ENCOUNTER 2023-09-18 11:18 | Outpatient (RCR) | payer MEDICARE, SELFPAY ==
[2023-08-23 21:56] VITALS: BMI 24.7
[2023-09-18 11:26] LABS: INR Fingerstick 3.2; Prothrombin Time Fingerstick 31.6 SEC (11.7-14.9)
== END 2023-09-21 18:00 | disposition home or self-care (01) ==
LOC: LAB 11:18
PROVIDERS: Family Provider Family Medicine; PCP Family Medicine; Referring Provider Nurse Practitioner Gerontology; Visit Provider Nurse Practitioner Gerontology
DX: I48.0 Paroxysmal atrial fibrillation (principal); Z79.01 Long term (current) use of anticoagulants
CPT/HCPCS: 36416; 85610

== ENCOUNTER 2023-12-20 09:02 | Outpatient (RCR) | payer MEDICARE, SELFPAY ==
[2023-09-21 22:30] VITALS: BMI 24.7
[2023-12-20 10:54] LABS: Absolute Lymphocyte Count 1.94 X10^3/uL (0.83-4.51); Absolute Neutrophil Count 4.2 X10^3/uL (2.0-7.7); Basophil# 0.05 X10^3/uL; Basophil% 0.7 % (0-1); Eosinophil# 0.09 X10^3/uL; Eosinophils% 1.3 % (0-5); Hematocrit 42.1 % (37-47); Hemoglobin 13.6 g/dL (12.0-15.0); Lymphocyte # 1.94 X10^3/ul (0.83-4.51); Lymphocyte % 28.4 % (19-41); Mean Corp Hgb Conc 32.3 g/dL (32-36); Mean Corpuscular Hgb 30.2 pg (27.0-32.0); Mean Corpuscular Volume 93.6 fL (81-99); Mean Platelet Vol. 10.9 fl (6.2-12.0); Monocyte# 0.54 X10^3/uL; Monocyte% 7.9 % (0-10); NRBC Flagged by Analyzer 0 % (0-5); Neutrophil % 61.4 % (47-70); Platelet Count 207 K/mm3 (150-450); RBC Distribution Width CV 12.9 % (11.6-14.6); RBC Distribution Width SD 44.3 fl (35.1-43.9); White Blood Count 6.8 K/mm3 (4.4-11.0)
[2023-12-20 11:07] LABS: International Normalized Ratio 2.3; Prothrombin Time (Protime)PT. 25.4 SECONDS (11.7-14.9)
[2023-12-20 12:37] LABS: AST(SGOT) 42 U/L (15-37); Alanine Aminotransfer ALT/SGPT 40 U/L (13-56); Albumin, Serum 3.8 g/dL (3.2-5.0); Alkaline Phosphatase 72 U/L (45-117); Bilirubin, Direct 0.22 mg/dL (0.00-0.30); Cholesterol 131 mg/dL (200); Globulin 3.4 g/dL (2.2-4.2); High Density Lipoprotein 51 mg/dL; Protein, Total 7.2 g/dL (6.4-8.2); Triglycerides 165 mg/dL; Very Low Density Lipoprotein 33 mg/dL (5-40)
[2023-12-20 13:56] LABS: T4 Free Direct 1.13 ng/dL (0.76-1.46); Thyroid Stim Hormone (TSH) 1.77 uIU/mL (0.358-3.74)
== END 2023-12-22 18:00 | disposition home or self-care (01) ==
LOC: LAB 09:02
PROVIDERS: Physician Assistant Medical; Family Provider Family Medicine; PCP Family Medicine; Referring Provider Nurse Practitioner Gerontology; Visit Provider Nurse Practitioner Gerontology
DX: I48.0 Paroxysmal atrial fibrillation (principal); Z79.01 Long term (current) use of anticoagulants; E03.9 Hypothyroidism, unspecified; D75.1 Secondary polycythemia
CPT/HCPCS: 36415; 80061; 80076; 84439; 84443; 85025; 85610

== ENCOUNTER 2024-03-14 11:32 | Outpatient (RCR) | payer MEDICARE, SELFPAY ==
[2023-12-25 09:25] VITALS: BMI 24.7
[2024-03-14 11:46] LABS: INR Fingerstick 2.6; Prothrombin Time Fingerstick 26.3 SEC (11.7-14.9)
== END 2024-03-14 18:00 | disposition home or self-care (01) ==
LOC: LAB 11:32
PROVIDERS: Family Provider Family Medicine; PCP Family Medicine; Referring Provider Nurse Practitioner Gerontology; Visit Provider Nurse Practitioner Gerontology
DX: I48.0 Paroxysmal atrial fibrillation (principal); Z79.01 Long term (current) use of anticoagulants
CPT/HCPCS: 36416; 85610

== ENCOUNTER 2024-04-11 11:31 | Outpatient (RCR) | payer MEDICARE, SELFPAY ==
[2024-03-24 03:54] VITALS: BMI 24.7
[2024-04-05 11:41] LABS: INR Fingerstick 3.4; Prothrombin Time Fingerstick 33.5 SEC (11.7-14.9)
[2024-04-08 11:42] LABS: INR Fingerstick 2.5; Prothrombin Time Fingerstick 26.1 SEC (11.7-14.9)
[2024-04-11 11:38] LABS: INR Fingerstick 1.7; Prothrombin Time Fingerstick 18.5 SEC (11.7-14.9)
== END 2024-04-11 18:00 | disposition home or self-care (01) ==
LOC: LAB 11:31
PROVIDERS: Family Provider Family Medicine; PCP Family Medicine; Referring Provider Nurse Practitioner Gerontology; Visit Provider Nurse Practitioner Gerontology
DX: I48.0 Paroxysmal atrial fibrillation (principal); Z79.01 Long term (current) use of anticoagulants
CPT/HCPCS: 36416; 85610

== ENCOUNTER 2024-04-29 14:07 | Outpatient (RCR) | payer MEDICARE, SELFPAY ==
[2024-04-23 03:43] VITALS: BMI 24.7
[2024-04-30 12:35] LABS: INR Fingerstick 1.8; Prothrombin Time Fingerstick 18.9 SEC (11.7-14.9)
== END 2024-04-29 18:00 | disposition home or self-care (01) ==
LOC: LAB 14:07
PROVIDERS: Family Provider Family Medicine; PCP Family Medicine; Referring Provider Nurse Practitioner Gerontology; Visit Provider Nurse Practitioner Gerontology
DX: I48.0 Paroxysmal atrial fibrillation (principal); Z79.01 Long term (current) use of anticoagulants
CPT/HCPCS: 36416; 85610

== ENCOUNTER 2024-06-03 12:10 | Outpatient (RCR) | payer MEDICARE, SELFPAY ==
[2024-05-23 20:41] VITALS: BMI 24.7
[2024-06-03 13:12] LABS: INR Fingerstick 2.1; Prothrombin Time Fingerstick 23.3 SEC (11.7-14.9)
== END 2024-06-22 18:00 | disposition home or self-care (01) ==
LOC: LAB 12:10
PROVIDERS: Family Provider Family Medicine; PCP Family Medicine; Referring Provider Nurse Practitioner Gerontology; Visit Provider Nurse Practitioner Gerontology
DX: I48.0 Paroxysmal atrial fibrillation (principal); Z79.01 Long term (current) use of anticoagulants
CPT/HCPCS: 36416; 85610

== ENCOUNTER 2024-08-27 11:20 | Outpatient (RCR) | payer MEDICARE, SELFPAY ==
[2024-06-22 23:13] VITALS: BMI 24.7
[2024-08-27 11:32] LABS: INR Fingerstick 2.1; Prothrombin Time Fingerstick 21.9 SEC (11.7-14.9)
== END 2024-09-20 18:00 | disposition home or self-care (01) ==
LOC: LAB 11:20
PROVIDERS: Family Provider Family Medicine; PCP Family Medicine; Referring Provider Nurse Practitioner Gerontology; Visit Provider Nurse Practitioner Gerontology
DX: I48.0 Paroxysmal atrial fibrillation (principal); Z79.01 Long term (current) use of anticoagulants
CPT/HCPCS: 36416; 85610

== ENCOUNTER 2025-01-14 08:49 | Outpatient (RCR) | payer MEDICARE, SELFPAY ==
[2024-09-21 03:55] VITALS: BMI 24.7
[2025-01-14 09:44] LABS: Hematocrit 44.6 % (37-47); Hemoglobin 14.8 g/dL (12.0-15.0); Mean Corp Hgb Conc 33.2 g/dL (32-36); Mean Corpuscular Hgb 31.2 pg (27.0-32.0); Mean Corpuscular Volume 93.9 fL (81-99); Mean Platelet Vol. 10.3 fl (6.2-12.0); Platelet Count 213 K/mm3 (150-450); RBC Distribution Width CV 12.7 % (11.6-14.6); RBC Distribution Width SD 43.9 fl (35.1-43.9); Red Blood Count 4.75 M/mm3 (4.2-5.4); White Blood Count 7.5 K/mm3 (4.4-11.0)
[2025-01-14 10:03] LABS: International Normalized Ratio 2.3; Prothrombin Time (Protime)PT. 25.8 SECONDS (11.7-14.9)
[2025-01-14 10:07] LABS: Hemoglobin A1c 5.8 % (<=5.6)
[2025-01-14 10:31] LABS: ALB/GLOB Ratio 1.5 RATIO (0.9-2.4); AST(SGOT) 56 U/L (<=31); Alanine Aminotransfer ALT/SGPT 53 U/L (<=34); Albumin, Serum 4.4 g/dL (3.4-4.8); Alkaline Phosphatase 74 U/L (35-104); BUN 20 mg/dL (4-19); BUN/Creat Ratio 18.6 RATIO (10-20); Calcium,Total 9.5 mg/dL (7.6-11.0); Cholesterol 136 mg/dL (<=200); Creatinine, Serum 1.05 mg/dL (0.70-1.20); EST Glomerular Filtration Rate 56 (>60); Globulin 2.9 g/dL (2.2-4.2); Glucose 100 mg/dL (70-99); Protein, Total 7.3 g/dL (5.9-8.4); Total Bilirubin 1.37 mg/dL (0.00-1.30); Triglycerides 154 mg/dL
[2025-01-14 10:32] LABS: Anion Gap 10 (5-15); Carbon Dioxide 26.7 mmol/L (21.0-32.0); Chloride 102 mmol/L (98-108); High Density Lipoprotein 51 mg/dL; Low Density Lipoprotein Calc. 54 mg/dL; Potassium 4.3 mmol/L (3.3-5.1); Sodium Level 139 mmol/L (133-145); Very Low Density Lipoprotein 31 mg/dL (5-40); cholesterol:hdl ratio screen 2.65
== END 2025-01-14 18:00 | disposition home or self-care (01) ==
LOC: LAB 08:49
PROVIDERS: Internal Medicine Cardiovascular Disease; Physician Assistant Medical; Family Provider Family Medicine; PCP Family Medicine; Referring Provider Nurse Practitioner Gerontology; Visit Provider Nurse Practitioner Gerontology
DX: I48.0 Paroxysmal atrial fibrillation (principal); Z79.01 Long term (current) use of anticoagulants; Z13.1 Encounter for screening for diabetes mellitus; I25.5 Ischemic cardiomyopathy; I25.10 Atherosclerotic heart disease of native coronary artery without angina pectoris; Z13.29 Encounter for screening for other suspected endocrine disorder
CPT/HCPCS: 36415; 80053; 80061; 83036; 84443; 85027; 85610

== ENCOUNTER 2025-03-05 09:34 | Outpatient (RCR) | payer MEDICARE, SELFPAY ==
[2025-03-05 10:31] LABS: Prothrombin Time (Protime)PT. 26.1 SECONDS (11.7-14.9)
[2025-03-05 11:03] LABS: AST(SGOT) 31 U/L (<=31); Alanine Aminotransfer ALT/SGPT 18 U/L (<=34); Albumin, Serum 4.3 g/dL (3.4-4.8); Alkaline Phosphatase 73 U/L (35-104); Bilirubin, Direct 0.32 mg/dL (0.00-0.30); Cholesterol 232 mg/dL (<=200); Globulin 3.0 g/dL (2.2-4.2); Low Density Lipoprotein Calc. 137 mg/dL; Triglycerides 184 mg/dL; Very Low Density Lipoprotein 37 mg/dL (5-40); cholesterol:hdl ratio screen 3.97
== END 2025-03-05 18:00 | disposition home or self-care (01) ==
LOC: LAB 09:34
PROVIDERS: Internal Medicine Cardiovascular Disease; Family Provider Family Medicine; PCP Family Medicine; Referring Provider Nurse Practitioner Gerontology; Visit Provider Nurse Practitioner Gerontology
DX: I48.0 Paroxysmal atrial fibrillation (principal); Z79.01 Long term (current) use of anticoagulants; E78.5 Hyperlipidemia, unspecified; R79.89 Other specified abnormal findings of blood chemistry
CPT/HCPCS: 36415; 80061; 80076; 85610

== ENCOUNTER → 2025-03-21 | Outpatient (CLI) | payer MEDICARE, SELFPAY ==
--- NOTE | 2025-03-21 14:40 | BI_ITS ---
EXAM: SCRN MAMM (CAD)W/ODALIS BILAT DATE: 03/21/2025 CLINICAL HISTORY: F, Age 74 y/o , SCREENING No family history. TECHNIQUE: Procedure Code: [id number] Modality: MG Procedure: SCRN MAMM (CAD)W/ODALIS BILAT COMPARISON: Prior exam(s) dated December 16, 2023.. FINDINGS: TISSUE DENSITY: There are scattered areas of fibroglandular density. Bilateral Breast Mammographic Findings: No significant masses, calcifications or other abnormalities are identified. A battery pack from a pacemaker is seen in the left axilla. No suspicious masses, areas of developing architectural distortion, or suspicious calcifications. There has been no significant interval change. BI/SCRN MAMM (CAD)W/ODALIS BILAT IMPRESSION: Stable examination OVERALL FINAL ASSESSMENT BI-RADS 1: NEGATIVE. RECOMMENDATION: Routine annual follow-up in 1 Year A letter with findings and recommendations will be mailed to the patient. Reading Location: [place] [id number]
== END | disposition home or self-care (01) ==
LOC: OPBI 14:36
PROVIDERS: PCP Family Medicine; Referring Provider Family Medicine; Visit Provider Family Medicine
DX: Z12.31 Encounter for screening mammogram for malignant neoplasm of breast (principal)
CPT/HCPCS: 77063; 77067

== ENCOUNTER 2025-04-11 09:20 | Outpatient (RCR) | payer MEDICARE, SELFPAY ==
[2025-04-11 10:38] LABS: Prothrombin Time (Protime)PT. 26.0 SECONDS (11.7-14.9)
[2025-04-11 11:09] LABS: AST(SGOT) 34 U/L (<=31); Alanine Aminotransfer ALT/SGPT 16 U/L (<=34); Albumin, Serum 4.2 g/dL (3.4-4.8); Alkaline Phosphatase 64 U/L (35-104); Bilirubin, Direct 0.37 mg/dL (0.00-0.30); Cholesterol 140 mg/dL (<=200); Globulin 2.8 g/dL (2.2-4.2); Low Density Lipoprotein Calc. 52 mg/dL; Triglycerides 164 mg/dL; Very Low Density Lipoprotein 33 mg/dL (5-40); cholesterol:hdl ratio screen 2.53
== END 2025-04-22 18:00 | disposition home or self-care (01) ==
LOC: LAB 09:20
PROVIDERS: Internal Medicine Cardiovascular Disease; Family Provider Family Medicine; PCP Family Medicine; Referring Provider Nurse Practitioner Gerontology; Visit Provider Nurse Practitioner Gerontology
DX: I48.0 Paroxysmal atrial fibrillation (principal); Z79.01 Long term (current) use of anticoagulants; E78.00 Pure hypercholesterolemia, unspecified; R79.89 Other specified abnormal findings of blood chemistry; E78.5 Hyperlipidemia, unspecified
CPT/HCPCS: 36415; 80061; 80076; 85610